=== PATIENT | female | born 1940 | race African-American/Black ===

== ENCOUNTER 2020-08-17 08:27 | Outpatient (CLI) | payer MEDICARE, SELFPAY ==
--- NOTE | 2020-08-17 11:30 | NEURO_ITS ---
Impression: # Complains of numbness of hands. # Bilateral Carpal Tunnel Syndrome. # Left ulnar neuropathy across the elbow. # Normal needle/EMG exam. # Clinical correlation recommended. Nerve Conduction Studies Anti Sensory Summary Table Stim Site NR Peak (ms) P-T Amp (?V) Site1 Site2 Delta-P (ms) Dist (cm) Tucker (m/s) Left Median Anti Sensory (2-3nd Digit) Wrist 4.9 19.9 Wrist 2-3nd Digit 4.9 14.0 29 Wrist 4.7 37.2 Wrist 2-3nd Digit 4.9 14.0 29 Right Median Anti Sensory (2-3nd Digit) Wrist 4.1 33.4 Wrist 2-3nd Digit 4.1 14.0 34 Wrist 4.0 54.8 Wrist 2-3nd Digit 4.1 14.0 34 Left Radial Anti Sensory (Base 1st Digit) Wrist 2.3 46.2 Wrist Base 1st Digit 2.3 0.0 Right Radial Anti Sensory (Base 1st Digit) Wrist 2.4 27.3 Wrist Base 1st Digit 2.4 0.0 Left Ulnar Anti Sensory (5th Digit) Wrist 2.8 45.9 Wrist 5th Digit 2.8 14.0 50 Right Ulnar Anti Sensory (5th Digit) Wrist 2.6 76.5 Wrist 5th Digit 2.6 14.0 54 Motor Summary Table Stim Site NR Onset (ms) O-P Amp (mV) Site1 Site2 Delta-0 (ms) Dist (cm) Tucker (m/s) Left Median Motor (Abd Poll Brev) Wrist 4.5 2.8 Elbow Wrist 4.8 28.0 58 Elbow 9.3 4.3 Right Median Motor (Abd Poll Brev) Wrist 4.5 3.7 Elbow Wrist 4.4 25.0 57 Elbow 8.9 2.4 Left Ulnar Motor (Abd Dig Minimi) Wrist 2.6 5.9 A Elbow Wrist 5.2 26.0 50 A Elbow 7.8 5.1 B Elbow Wrist 4.4 22.0 50 B Elbow 7.0 3.2 Right Ulnar Motor (Abd Dig Minimi) Wrist 3.0 4.8 A Elbow Wrist 4.5 26.0 58 A Elbow 7.5 3.5 F Wave Studies NR F-Lat (ms) L-R F-Lat (ms) Left Median (Mrkrs) (Abd Poll Brev) 28.01 0.18 Right Median (Mrkrs) (Abd Poll Brev) 27.84 0.18 Left Ulnar (Mrkrs) (Abd Dig Min) 25.83 0.68 Right Ulnar (Mrkrs) (Abd Dig Min) 26.50 0.68 EMG Side Muscle Nerve Root Ins Act Fibs Amp Dur Recrt Comment Right 1stDorInt Ulnar C8-T1 Nml Nml Nml Nml Nml Right Ext Indicis Radial (Post Int) C7-8 Nml Nml Nml Nml Nml Right Ext Digitorum Radial (Post Int) C7-8 Nml Nml Nml Nml Nml Right BrachioRad Radial C5-6 Nml Nml Nml Nml Nml Right PronatorTeres Median C6-7 Nml Nml Nml Nml Nml Right Abd Poll Brev Median C8-T1 Nml Nml Nml Nml Nml Left 1stDorInt Ulnar C8-T1 Nml Nml Nml Nml Nml Left Ext Indicis Radial (Post Int) C7-8 Nml Nml Nml Nml Nml Left Ext Digitorum Radial (Post Int) C7-8 Nml Nml Nml Nml Nml Left BrachioRad Radial C5-6 Nml Nml Nml Nml Nml Left PronatorTeres Median C6-7 Nml Nml Nml Nml Nml Left Abd Poll Brev Median C8-T1 Nml Nml Nml Nml Nml Right ABD Dig Min Ulnar C8-T1 Nml Nml Nml Nml Nml Left ABD Dig Min Ulnar C8-T1 Nml Nml Nml Nml Nml MTDD
== END 2020-08-17 08:28 | disposition home or self-care (01) ==
PROVIDERS: PCP Family Medicine; Visit Provider Family Medicine
DX: G56.03 Carpal tunnel syndrome, bilateral upper limbs (principal); R53.83 Other fatigue; R52 Pain, unspecified
CPT/HCPCS: 95886; 95911

== ENCOUNTER 2020-10-07 14:39 | Outpatient (CLI) | payer MEDICARE, SELFPAY ==
--- NOTE | 2020-10-07 14:41 | ECG_ITS ---
Measurements Intervals [place] Rate: 66 P: -28 MT: 163 QRS: -5 QRSD: 84 T: 13 QT: 389 QTc: 410 Interpretive Statements SINUS RHYTHM VOLTAGE CRITERIA FOR LVH BORDERLINE T WAVE ABNORMALITY- INFERIOR LEADS BASELINE ARTIFACT- I, II, III, AVR, AVL,A VF, V1-V6 BORDERLINE ECG Electronically Signed On 10-07-2020 16:45:02 BOOK EDITOR by Bg Real D.O.
[2020-10-07 15:16] LABS: Anion Gap 4 mmol/L (8-16); Blood Urea Nitrogen 28 mg/dL (7-17); Calcium 9.7 mg/dL (8.4-10.2); Carbon Dioxide 31 mmol/L (22-30); Chloride 104 mmol/L (98-107); Estimated Glomerular Filt Rate 48; Glucose 126 mg/dL (65-105); Potassium 4.6 mmol/L (3.4-5.0); Sodium 139 mmol/L (137-145)
== END 2020-10-07 14:40 | disposition home or self-care (01) ==
LOC: ANHSURGERY 14:40
PROVIDERS: Anesthesiology; Family Provider Family Medicine; PCP Family Medicine; Visit Provider Plastic Surgery
DX: E11.9 Type 2 diabetes mellitus without complications (principal); Z01.818 Encounter for other preprocedural examination
CPT/HCPCS: 36415; 80048; 93005

== ENCOUNTER 2020-10-10 00:21 | Outpatient (CLI) | payer MEDICARE, SELFPAY ==
[2020-10-10 17:34] LABS: SARS-CoV-2 RNA PCR Negative
== END 2020-10-10 00:22 | disposition home or self-care (01) ==
LOC: ANHCOVIDDT 00:21
PROVIDERS: Family Provider Family Medicine; PCP Family Medicine; Visit Provider Plastic Surgery
DX: Z01.812 Encounter for preprocedural laboratory examination (principal); Z20.822 Contact with and (suspected) exposure to COVID-19
CPT/HCPCS: C9803; U0003; U0005

== ENCOUNTER 2020-10-13 00:32 | Day surgery (SDC) | payer MEDICARE, SELFPAY ==
[2020-10-06 12:30] VITALS: BMI 31.1
[2020-10-13] VITALS (7 sets, daily range): BP systolic 128–146; BP diastolic 68–81; PULSE 61–86; RESP 10–20; TEMP 36.6; O2SAT 100
--- NOTE | 2020-10-13 07:08 | WPDHPUPDATE1 ---
History and Physical Update Update Date/Time: 10/13/20 07:08 History and Physical has been reviewed, including an updated exam of the patient. There are NO changes in the patient's condition. Risks, benefits, and alternatives have been discussed and questions answered. Patient agrees to proceed with procedure.
[2020-10-13] MEDS: LACTATED RINGERS 1,000 ML 30 ML IV CONT (10:25)
[2020-10-13 10:38] LABS: Glucose Point of Care 106 (65-105)
--- NOTE | 2020-10-13 10:56 | WPDANESEPPF ---
Anes - Initial Pre Proc Eval Procedure: Operation Date: 10/13/20 11:30 Proposed Procedures p Bilateral Open Carpal Tunnel Release - Vega Murphy MD Date/Time: 10/13/20 10:56 Surgeon: Vega Murphy MD Pre Op Diagnosis: bilat carpal tunnel syndrome Patient Data Age: 80 Gender: F Height: 4 ft 11 in Weight: 70 kg Allergies Allergy/AdvReac Type Severity Reaction Status Date / Time levofloxacin [From Levaquin] Allergy Severe Hives Verified 10/13/20 10:23 Home Medications Medication Instructions Recorded Confirmed Type ascorbate calcium (vitamin C) 1,000 mg PO DAILY 10/06/20 10/13/20 History aspirin [Aspirin Low Dose] 81 mg PO DAILY 10/06/20 10/13/20 History carvedilol 25 mg BID 10/06/20 10/13/20 History clopidogrel 75 mg DAILY 10/06/20 10/13/20 History geriatric multivitamin-min 1 tablet DAILY 10/06/20 10/13/20 History [One-A-Day 50 Plus] nitroglycerin 0.4 mg SUBLINGUAL Q5M PRN 10/06/20 10/06/20 History sitagliptin [Januvia] 100 mg DAILY 10/06/20 10/13/20 History spironolactone 12.5 mg DAILY 10/06/20 10/13/20 History Laboratory Tests 10/13/20 10:34 POC Capillary Glucose 106 mg/dl mg/dl (65-105) Patient hx anesthesia problems: none Family hx anesthesia problems: none PMFSH Past Medical History Medical History (Updated 10/13/20 @ 10:51 by Norbert Tavarez MD) CAD (coronary artery disease) CVA (cerebral vascular accident) Diabetes RADHA (obstructive sleep apnea) Family History Family History (Updated 11/24/18 @ 11:51 by DOCTOR UNKNOWN) Father Hypertension Family history of elevated blood lipids Mother Hypertension Family history of elevated blood lipids Social History Social History Smoking status: Never smoker Second hand tobacco smoke exposure: No Alcohol intake: never Substance use: never Substance use type: does not use Living arrangements: alone Spiritual care concerns: No Anes - Eval Final PreProcedure Day of Procedure 10/13/20 10:56 Patient weight: normal Heart: regular rate and rhythm Lungs: clear to auscultation Airway: Mallampati scale class II Neurological: alert and oriented Last oral intake: >/= 8 hours ASA classification: III Emergent: no Anesthetic plan: proceed Anesthesia type and monitoring: general GIVS and standard monitoring Informed Consent: The patient's anesthetic plan and its attendant risks and benefits were discussed with the patient/family/POA. Questions were solicited and answers provided to the satisfaction of the patient/family/POA.
[2020-10-13] MEDS: BACITRACIN OINTMENT 15 GM TUBE 1 APPLIC TOPICAL (13:28)
[2020-10-13] MEDS: LIDO 1%/EPINEPHRINE 1:100,000 50 ML VIAL INFILTRATE (13:28)
--- NOTE | 2020-10-13 13:33 | SUR.OPER ---
Ebl=5ml
[2020-10-13 13:47] LABS: Glucose Point of Care 96 (65-105)
--- NOTE | 2020-10-13 13:47 | PM.PROC ---
Procedure Note - Detailed Date of procedure: 10/13/20 Pre-op diagnosis: bilat carpal tunnel syndrome Post-op diagnosis: same Procedure performed: B OCTR Anesthesia: MAC Surgeon: Vega Murphy MD Estimated blood loss (mL): 3 Tourniquet time (min): 6 Drains: No Packing: No Pathology: none sent Complications: No immediate complications Condition: stable Disposition: same day
--- NOTE | 2020-10-13 14:02 | PM.PROC ---
Procedure Note - Detailed Date of procedure: 10/13/20 Pre-op diagnosis: bilat carpal tunnel syndrome Post-op diagnosis: same Procedure performed: Bilateral open carpal tunnel release Description of procedure: The patient who has consented for bilateral carpal tunnel release was not marked in preop she was met in the operating room. She was still awake. The time-out was held and confirmed. She was given IV sedation and both hands were prepped and draped in usual fashion. The 2 wrists were infiltrated with 1% lidocaine with epinephrine. Surgery was begun on the left side with the tourniquet was elevated to 250 mmHg. The incision was made in the palm as marked dissection was carried bluntly through the subcutaneous tissue to palmar fascia. This and the carpal ligament were incised with a 15. Blade. Under 3 point retraction the ligament was divided distally and proximally for complete release. No unusual anatomy was noted the skin was closed with interrupted 5 0 nylon suture. The usual bandage was applied the tourniquet was released. The right side was done next with no inflation of the tourniquet. This was due to the proximity of the IV.The site had been marked and previously infiltrated with 1% lidocaine with epinephrine. The incision was made in the palm. Dissection was carried bluntly through the subcutaneous tissue to the palmar fascia. This and the carpal ligament were incised with a 15. Blade opening the canal. Under 3 point retraction the ligament was divided distally and proximally to completely release it. No unusual anatomy was noted. The wound was closed with interrupted 5 0 nylon sutures. The usual bandage was applied. Anesthesia: MAC Surgeon: Vega Murphy MD Estimated blood loss (mL): 2 Tourniquet time (min): 8 Drains: No Packing: No Pathology: none sent Complications: No immediate complications Condition: stable Disposition: same day
== END 2020-10-13 15:20 | disposition home or self-care (01) ==
PROVIDERS: Family Provider Family Medicine; PCP Family Medicine; Visit Provider Plastic Surgery
PROC: (CPT 64721; principal; 2020-10-13 11:30)
DX: G56.03 Carpal tunnel syndrome, bilateral upper limbs (principal); E11.9 Type 2 diabetes mellitus without complications; I25.10 Atherosclerotic heart disease of native coronary artery without angina pectoris; G47.33 Obstructive sleep apnea (adult) (pediatric); Z86.73 Personal history of transient ischemic attack (TIA), and cerebral infarction without residual deficits; Z79.02 Long term (current) use of antithrombotics/antiplatelets; Z79.82 Long term (current) use of aspirin; Z79.84 Long term (current) use of oral hypoglycemic drugs
CPT/HCPCS: 64721; 36415; 80048; 82948; 93005; A9270; C9803; J2405; J2704; J7120; U0003; U0005

== ENCOUNTER 2020-12-15 10:43 | Outpatient (CLI) | payer MEDICARE, SELFPAY ==
--- NOTE | ~2020-12-15 | CT_ITS ---
EXAMINATION: CT cervical spine wo con EXAM DATE: 12/15/2020 11:16 INDICATION: Cervicalgia. TECHNIQUE: Spiral CT of the cervical spine was performed without contrast. Axial images were reviewe d. Coronal and sagittal reformatted images were also reviewed. The dose-length product (DLP) for thi s examination was 357.89 mGy-cm. The exposure was tailored according to patient size (auto mA exposu re control), and iterative reconstruction (ASIR) was used as additional dose reduction technique. Cor relation is made to neck CT 04/08/2005. FINDINGS: There is fused C5-6 disc space, less trabeculation and ossification than the vertebral bod ies, probably still developing osseous fusion. No cortical destruction or fluid density to suggest di scitis. Moderate to severe disc disease at the C6-7 level, mild to moderate at the other cervical lev els. The vertebral bodies are aligned in the AP dimension. The odontoid process is intact. The later al masses of C1 line up with C2. There are no acute fractures identified. Patient has had interval right-sided thyroidectomy, with the right vocal cord midline which could ind icate paralysis. Additionally, prominent ascending aorta on the emergency room clerk image, possible aneurysm. Level by level evaluation: C2-C3: Disc does not extend beyond the endplate margin. Uncovertebral joint arthropathy: None. Facet joint arthropathy: Moderate left, mild right. Neural foraminal stenosis: Mild left. Central canal stenosis: No stenosis. C3-C4: There is a mild diffuse disc bulge. Uncovertebral joint arthropathy: Mild to moderate right. Facet joint arthropathy: Moderate right, mild to moderate left. Neural foraminal stenosis: Mild to moderate right. Central canal stenosis: No stenosis. C4-C5: There is a mild diffuse disc bulge. Uncovertebral joint arthropathy: Mild bilateral. Facet joint arthropathy: Moderate to severe right, moderate left. Neural foraminal stenosis: Moderate right, mild left. Central canal stenosis: Mild. C5-C6: This level is fused. Uncovertebral joint arthropathy: Fused, but bulky left. Facet joint arthropathy: Fused, mild right. Neural foraminal stenosis: Mild left. Central canal stenosis: Mild. C6-C7: There is a mild diffuse disc bulge. Uncovertebral joint arthropathy: Moderate bilateral. Facet joint arthropathy: Mild bilateral. Neural foraminal stenosis: Mild right. Central canal stenosis: Mild. C7-T1: Disc does not extend beyond the endplate margin. Uncovertebral joint arthropathy: None. Facet joint arthropathy: Moderate bilateral. Neural foraminal stenosis: Mild to moderate left. Central canal stenosis: No stenosis. IMPRESSION: 1. Possible ascending aortic aneurysm; consider chest CT, without contrast would be adequate for anna luating caliber of aorta. 2. Spondylosis as detailed above, right C4-5 neural foramina most narrowed. Reviewed, dictated and finalized at location A. IMPRESSION: 1. Possible ascending aortic aneurysm; consider chest CT, without contrast wou ld be adequate for evaluating caliber of aorta. 2. Spondylosis as detailed above, right C4-5 neural foramina most narrowed.
== END 2020-12-15 10:44 | disposition home or self-care (01) ==
PROVIDERS: PCP Family Medicine
DX: M54.2 Cervicalgia (principal)
CPT/HCPCS: 72125

== ENCOUNTER 2020-12-19 10:35 | Outpatient (CLI) | payer MEDICARE, SELFPAY ==
--- NOTE | ~2020-12-19 | CT_ITS ---
EXAMINATION: CT diagnostic chest wo con EXAM DATE: 12/19/2020 10:54 INDICATION: Aneurysmal neck CT. Ascending aortic aneurysm. TECHNIQUE: Spiral CT of the chest without contrast. Axial, coronal and sagittal images were reviewe d. Coronal maximum intensity pixel images of chest reviewed. The dose-length product (DLP) for this examination was 170.81 mGy-cm. The exposure was tailored according to patient size (auto mA exposur e control), and iterative reconstruction (ASIR) was used as additional dose reduction technique. The re is no prior study for comparison. FINDINGS: The ascending aorta measures 5 cm, moderately dilated. There are no pleural or pericardia l effusions. Tracheobronchial tree is patent. There is no mediastinal, hilar or axillary lymphade nopathy. There is no pneumothorax. Heart normal in size. Dense left anterior descending coronar y artery, could be severe coronary arterial sclerosis and/or coronary artery stent(s), which are diff icult to distinguish due to cardiac motion on this non-gated exam. Upper abdomen is unremarkable. There is moderate thoracic spondylosis without osteoblastic or osteolytic lesions identified. IMPRESSION: 1. Ascending aortic 5 cm aneurysm. 2. Dense left anterior descending coronary artery, stent versus arterial sclerosis. Reviewed, dictated and finalized at location A. IMPRESSION: 1. Ascending aortic 5 cm aneurysm. 2. Dense left anterior descending coronary artery, stent versus arterial scler osis.
== END 2020-12-19 10:36 | disposition home or self-care (01) ==
PROVIDERS: PCP Family Medicine; Visit Provider Family Medicine
DX: I71.2 Thoracic aortic aneurysm, without rupture (principal); M47.814 Spondylosis without myelopathy or radiculopathy, thoracic region
CPT/HCPCS: 71250

== ENCOUNTER → 2021-03-03 06:38 | Outpatient (CLI) | payer MEDICARE, SELFPAY ==
[2021-03-04 16:57] LABS: SARS-CoV-2 RNA PCR Negative
== END ==
PROVIDERS: PCP Family Medicine; Visit Provider Family Medicine
DX: Z01.812 Encounter for preprocedural laboratory examination (principal); Z20.822 Contact with and (suspected) exposure to COVID-19
CPT/HCPCS: C9803; U0003; U0005

== ENCOUNTER 2021-06-16 09:04 | Outpatient (CLI) | payer MEDICARE, SELFPAY ==
--- NOTE | ~2021-06-16 | XR_ITS ---
XR chest 1V DATE: 06/16/2021 09:36 INDICATION: Ascending aortic aneurysm TECHNIQUE: PA view COMPARISON: CT chest 06/01/2007 portable AP chest 08/13/2006 AP and lateral chest FINDINGS: Heart size is within upper normal range. There is aortic calcification, ectasia and unfoldi ng. No hilar or mediastinal enlargement. No pulmonary infiltrate or consolidation, pleural effusion or pulmonary vascular congestion or pneumo thorax. Status post cervical spine surgical fusion. Diffuse osteopenia. There is mild dextroscoliosis and prominent degenerative spurring of the thoracic spine. Osteophytic changes are noted at the glenohumeral joints, especially on the left. IMPRESSION: No active pulmonary disease Reviewed, dictated and finalized at location A. IMPRESSION: No active pulmonary disease
== END 2021-06-16 09:05 ==
PROVIDERS: PCP Family Medicine; Visit Provider Family Medicine
DX: I71.9 Aortic aneurysm of unspecified site, without rupture (principal)
CPT/HCPCS: 71045; 71046

== ENCOUNTER 2022-07-23 10:20 | Outpatient (CLI) | payer MEDICARE, SELFPAY ==
[2022-07-23 11:14] LABS: Hematocrit 34.4 % (37.0-47.0); Hemoglobin 11.4 g/dL (12.0-15.0); Mean Corpuscular HGB Conc 33.1 g/dl (32-36); Mean Corpuscular Hemoglobin 29.2 pg (26-34); Mean Corpuscular Volume 88.2 fl (80-100); Platelet Count Result 189 k/mm3 (150-375); White Blood Count 4.9 K/mm3 (4.5-10.0)
[2022-07-23 11:17] LABS: Creatinine Urine 84.7 mg/dL; Total Protein Urine Random 6 mg/dL; Ur Ttl Prot Creatinine Ratio 0.07 mg/mg (0-0.20)
[2022-07-23 11:25] LABS: Albumin Level 4.2 g/dL (3.5-5.1); Anion Gap 7 mmol/L (8-16); Blood Urea Nitrogen 33 mg/dL (7-17); Calcium 8.8 mg/dL (8.4-10.2); Carbon Dioxide 28 mmol/L (22-30); Chloride 108 mmol/L (98-107); Estimated Glomerular Filt Rate 31; Glucose 94 mg/dL (65-110); Phosphorus 3.8 mg/dL (2.5-4.5); Potassium 4.5 mmol/L (3.4-5.0); Sodium 143 mmol/L (137-145)
== END 2022-07-23 10:21 | disposition home or self-care (01) ==
PROVIDERS: PCP Family Medicine
DX: E11.9 Type 2 diabetes mellitus without complications (principal); I12.9 Hypertensive chronic kidney disease with stage 1 through stage 4 chronic kidney disease, or unspecified chronic kidney disease; N18.2 Chronic kidney disease, stage 2 (mild)
CPT/HCPCS: 36415; 80069; 82570; 84156; 85027

== ENCOUNTER 2023-01-22 11:24 | Outpatient (CLI) | payer MEDICARE, SELFPAY ==
[2023-01-22 12:01] LABS: Hematocrit 34.8 % (37.0-47.0); Hemoglobin 11.3 g/dL (12.0-15.0); Mean Corpuscular HGB Conc 32.5 g/dl (32-36); Mean Corpuscular Hemoglobin 28.9 pg (26-34); Mean Platelet Volume 9.7 fl (7.4-10.4); Platelet Count Result 180 k/mm3 (150-375); Red Blood Count 3.91 M/mm3 (4.2-5.4); Red Cell Distribution Width 13.9 % (11.5-14.5); White Blood Count 4.5 K/mm3 (4.5-10.0)
[2023-01-22 12:08] LABS: Creatinine Urine 92.6 mg/dL
[2023-01-22 12:21] LABS: Anion Gap 6 mmol/L (8-16); Blood Urea Nitrogen 43 mg/dL (7-17); Calcium 9.1 mg/dL (8.4-10.2); Carbon Dioxide 29 mmol/L (22-30); Chloride 105 mmol/L (98-107); Estimated Glomerular Filt Rate 31; Glucose 104 mg/dL (65-110); Phosphorus 4.6 mg/dL (2.5-4.5); Potassium 4.8 mmol/L (3.4-5.0); Sodium 140 mmol/L (137-145)
[2023-01-22 12:23] LABS: Total Protein Urine Random < 5 mg/dL; Ur Ttl Prot Creatinine Ratio < 0.05 mg/mg (0-0.20)
== END 2023-01-22 11:25 | disposition home or self-care (01) ==
PROVIDERS: PCP Family Medicine
DX: I12.9 Hypertensive chronic kidney disease with stage 1 through stage 4 chronic kidney disease, or unspecified chronic kidney disease (principal); N18.32 Chronic kidney disease, stage 3b; E11.9 Type 2 diabetes mellitus without complications
CPT/HCPCS: 36415; 80069; 82570; 84156; 85027

== ENCOUNTER 2023-11-05 13:21 | Outpatient (CLI) | payer MEDICARE, SELFPAY ==
[2023-11-05 14:07] LABS: Albumin Level 3.9 g/dL (3.5-5.1); Anion Gap 5 mmol/L (8-16); Blood Urea Nitrogen 23 mg/dL (7-17); Calcium 8.9 mg/dL (8.4-10.2); Carbon Dioxide 26 mmol/L (22-30); Chloride 108 mmol/L (98-107); Estimated Glomerular Filt Rate 37; Glucose 112 mg/dL (65-110); Phosphorus 3.7 mg/dL (2.5-4.5); Sodium 139 mmol/L (137-145)
== END 2023-11-05 13:22 | disposition home or self-care (01) ==
PROVIDERS: PCP Family Medicine
DX: N18.32 Chronic kidney disease, stage 3b (principal)
CPT/HCPCS: 36415; 80069

== ENCOUNTER 2024-01-24 12:55 | Outpatient (CLI) | payer MEDICARE, SELFPAY ==
--- NOTE | ~2024-01-24 | US_ITS ---
EXAMINATION: US venous doppler LE RT DATE: 01/24/2024 14:24 INDICATION: Right lower limb edema. TECHNIQUE: Grayscale ultrasound images without and with compression and Doppler ultrasound images of the right lower extremity veins were obtained. COMPARISON: None. FINDINGS: The visualized portions of right common femoral vein, profunda (deep) femoral vein, femoral vein, pop liteal vein, peroneal veins, posterior tibial veins, and greater saphenous vein outflow are patent. IMPRESSION: 1. No deep venous thrombosis. Reviewed, dictated and finalized at location E.
== END 2024-01-24 12:56 | disposition home or self-care (01) ==
DX: R60.0 Localized edema (principal)
CPT/HCPCS: 93971

== ENCOUNTER 2024-03-24 02:10 | Day surgery (SDC) | payer MEDICARE, SELFPAY ==
--- NOTE | 2024-03-13 10:11 | SUR.PREOP ---
Patient called to reschedule his procedure since Dr. Martins will be unavailable on Apr 13. Was unable to reach patient since her voicemail is not set up. Message left on pt's daughter's voicemail.
[2024-03-20 12:15] VITALS: BMI 31.3
[2024-03-24 13:03] VITALS: BP 122/83; PULSE 70; RESP 18; TEMP 36.4; O2SAT 96; BMI 30.7
[2024-03-24 13:19] LABS: Glucose Point of Care 78 mg/dl (65-105)
[2024-03-24] MEDS: LACTATED RINGERS 1,000 ML 150 ML IV CONT (13:54)
--- NOTE | 2024-03-24 14:00 | WPDANESEPPF ---
Anes - Initial Pre Proc Eval Procedure: Operation Date: 03/24/24 14:30 Proposed Procedures p Esophagogastroduodenoscopy & Colonoscopy - Maynor Contreras MD Date/Time: 03/24/24 14:00 Surgeon: Maynor Contreras MD Pre Op Diagnosis: N&V, Epigastric pain, Constipation, CIBH Patient Data Age: 83 Gender: F Height: 1.5 m Weight: 69.1 kg Last Vital Signs Temp 97.5 F L 03/24/24 13:03 Pulse 70 03/24/24 13:03 Resp 18 03/24/24 13:03 BP 122/83 03/24/24 13:03 Pulse Ox 96 03/24/24 13:03 O2 Del Method Room Air 03/24/24 13:03 Allergies Allergy/AdvReac Type Severity Reaction Status Date / Time levofloxacin [From Levaquin] Allergy Severe Hives Verified 03/24/24 12:58 Home Medications Medication Instructions Recorded Confirmed Type aspirin 81 mg tablet,delayed 81 mg PO DAILY 10/06/20 03/24/24 History release (Yasmine Low Dose Aspirin) carvedilol 25 mg tablet 25 mg BID 10/06/20 03/24/24 History nitroglycerin 0.4 mg sublingual 0.4 mg sublingual Q5M PRN Chest 10/06/20 03/24/24 History tablet Pain sitagliptin phosphate 100 mg 100 mg PO DAILY 10/06/20 03/24/24 History tablet (Januvia) spironolactone 25 mg tablet 12.5 mg DAILY 10/06/20 03/24/24 History amlodipine 5 mg tablet 5 mg PO DAILY 02/18/24 03/24/24 History atorvastatin 20 mg tablet 20 mg PO DAILY 02/18/24 03/24/24 History tramadol 25 mg tablet 25 mg PO Q6H PRN Pain 02/18/24 03/24/24 History olmesartan 40 1 tablet PO DAILY 03/20/24 03/24/24 History mg-hydrochlorothiazide 25 mg tablet Laboratory Tests 03/24/24 13:08 POC Capillary Glucose 78 mg/dl (65-105) Patient hx anesthesia problems: none Family hx anesthesia problems: none Results Review: All pre-operative results and documents have been reviewed as part of the pre-operative evaluation. [facility] Past Medical History Medical History CAD (coronary artery disease) CVA (cerebral vascular accident) Diabetes RADHA (obstructive sleep apnea) Family History Family History Father Hypertension Family history of elevated blood lipids Mother Hypertension Family history of elevated blood lipids Social History Social History Smoking status: Never smoker Second hand tobacco smoke exposure: No Alcohol intake: never Substance use: never Substance use type: does not use Living arrangements: with family Spiritual care concerns: No Anes - Eval Final PreProcedure Day of Procedure 03/24/24 14:00 Patient weight: obese Heart: regular rate and rhythm Lungs: clear to auscultation Airway: Mallampati scale and special considerations (Missing many upper and lower teeth. ) Neurological: alert and oriented Last oral intake: >/= 8 hours ASA classification: III Emergent: no Anesthetic plan: proceed Anesthesia type and monitoring: general GIVS and standard monitoring Results Review: All pre-operative results and documents have been reviewed as part of the pre-operative evaluation. CAD, s/p PTCA without cp or sob. RADHA, DMf fsbs 78. Informed Consent: The patient's anesthetic plan and its attendant risks and benefits were discussed with the patient/family/POA. Questions were solicited and answers provided to the satisfaction of the patient/family/POA.
--- NOTE | 2024-03-24 14:05 | PM.HPGS ---
History of Present Illness History of Present Illness Consent: Risks, benefits, and alternatives have been discussed and questions answered. Patient agrees to proceed with procedure. Chief complaint: N&V, Epigastric pain, Constipation, CIBH Narrative: Saloni Mccallum is a 83 year old female with intermittent nausea and abdominal pain, also recently more constipation, last time had scopes in 2009 with diverticulosis and gastritis. Review of Systems Review of Systems: All systems reviewed & are unremarkable except as noted in HPI and below PMFSH Past Medical History Medical History CAD (coronary artery disease) CVA (cerebral vascular accident) Diabetes RADHA (obstructive sleep apnea) Family History Family History Father Hypertension Family history of elevated blood lipids Mother Hypertension Family history of elevated blood lipids Social History Social History Smoking status: Never smoker Second hand tobacco smoke exposure: No Alcohol intake: never Substance use: never Substance use type: does not use Living arrangements: with family Spiritual care concerns: No Meds Home Medications and Allergies Home Medications Medication Instructions Recorded Confirmed Type aspirin 81 mg tablet,delayed 81 mg PO DAILY 10/06/20 03/24/24 History release (Yasmine Low Dose Aspirin) carvedilol 25 mg tablet 25 mg BID 10/06/20 03/24/24 History nitroglycerin 0.4 mg sublingual 0.4 mg sublingual Q5M PRN Chest 10/06/20 03/24/24 History tablet Pain sitagliptin phosphate 100 mg 100 mg PO DAILY 10/06/20 03/24/24 History tablet (Januvia) spironolactone 25 mg tablet 12.5 mg DAILY 10/06/20 03/24/24 History amlodipine 5 mg tablet 5 mg PO DAILY 02/18/24 03/24/24 History atorvastatin 20 mg tablet 20 mg PO DAILY 02/18/24 03/24/24 History tramadol 25 mg tablet 25 mg PO Q6H PRN Pain 02/18/24 03/24/24 History olmesartan 40 1 tablet PO DAILY 03/20/24 03/24/24 History mg-hydrochlorothiazide 25 mg tablet Allergies Allergy/AdvReac Type Severity Reaction Status Date / Time levofloxacin [From Levaquin] Allergy Severe Hives Verified 03/24/24 12:58 Vital Signs Vital Signs - 24 hr 03/24/24 13:03 Temperature 97.5 F L Pulse Rate 70 Respiratory Rate 18 Blood Pressure 122/83 Pulse Oximetry 96 Oxygen Delivery Room Air Exam Const: General: comfortable and no acute distress HENMT: Face/Nose/Sinus: Normal nares present Eyes: General: appearance normal, both eyes and all related structures Neck: Neck: no JVD Resp: Auscultation: clear to auscultation bilaterally Cardio: Rate: regular rate Rhythm: regular rhythm GI: Inspection: non-distended GI Palp: Yes Soft to palpation Skin: General skin exam: normal color Neuro: General: gait normal Speech: normal speech Extrem: General: normal to inspection Psych: Mental Status: mental status grossly normal Assessment and Plan Assessment and plan (1) Epigastric pain: Code(s): R10.13 - Epigastric pain Status: Acute Assessment and Plan: egd to assess (2) Constipation: Code(s): K59.00 - Constipation, unspecified Status: Acute Assessment and Plan: colonoscopy
--- NOTE | 2024-03-24 14:25 | SUR.OPER ---
EGD end 1419 COLONOSCOPY START 1421
[2024-03-24 14:41] VITALS: BP 119/67; PULSE 62; RESP 20; O2SAT 100
[2024-03-24 14:51] VITALS: BP 115/70; PULSE 64; RESP 20; O2SAT 100
[2024-03-24 15:01] VITALS: BP 128/74; PULSE 64; RESP 20; O2SAT 99
[2024-03-24 15:20] LABS: HPYLORIRESULT Negative
== END 2024-03-24 15:13 | disposition home or self-care (01) ==
PROVIDERS: Visit Provider Internal Medicine Gastroenterology
PROC: 0DJ08ZZ Inspection of Upper Intestinal Tract, Via Natural or Artificial Opening Endoscopic (ICD-10-PCS; CPT 43235; principal; 2024-03-24 14:30)
DX: D12.2 Benign neoplasm of ascending colon (principal); K57.30 Diverticulosis of large intestine without perforation or abscess without bleeding; K64.8 Other hemorrhoids; K21.00 Gastro-esophageal reflux disease with esophagitis, without bleeding; K29.50 Unspecified chronic gastritis without bleeding; I25.10 Atherosclerotic heart disease of native coronary artery without angina pectoris; E11.9 Type 2 diabetes mellitus without complications; G47.33 Obstructive sleep apnea (adult) (pediatric); Z86.73 Personal history of transient ischemic attack (TIA), and cerebral infarction without residual deficits; Z79.82 Long term (current) use of aspirin; Z79.84 Long term (current) use of oral hypoglycemic drugs; E66.9 Obesity, unspecified; Z68.30 Body mass index [BMI] 30.0-30.9, adult
CPT/HCPCS: 45380; 43239; 82948; 87081; 88305; J2704; J7120

== ENCOUNTER 2024-07-03 09:26 | Outpatient (CLI) | payer MEDICARE, SELFPAY ==
[2024-07-03 10:15] LABS: Hematocrit 35.5 % (37.0-47.0); Hemoglobin 11.6 g/dL (12.0-15.0); Immature Granulocyte Absolute 0.02 K/mm3 (0.00-0.031); Immature Granulocyte Percent A 0.5 % (0-0.5); Lymphocytes Absolute Auto 1.19 K/mm3 (0.9-3.2); Lymphocytes Percent Auto 29.6 % (18.3-44.2); Mean Corpuscular HGB Conc 32.7 g/dl (32-36); Mean Corpuscular Hemoglobin 29.4 pg (26-34); Mean Corpuscular Volume 90.1 fl (80-100); Mean Platelet Volume 10.3 fl (7.4-10.4); Monocytes Absolute Auto 0.5 K/mm3 (0.1-0.6); Monocytes Percent Auto 13.2 % (2.6-8.5); Neutrophils Absolute Auto 2.3 K/mm3 (1.3-6.7); Neutrophils Percent Auto 56.7 % (45.5-73.1); Platelet Count Result 173 k/mm3 (150-375); Red Blood Count 3.94 M/mm3 (4.2-5.4); Red Cell Distribution Width 13.4 % (11.5-14.5)
[2024-07-03 10:23] LABS: Hemoglobin A1C 6.3 % (<5.7)
[2024-07-03 10:32] LABS: Alanine Aminotransferase 40 U/L (6-35); Albumin Level 4.2 g/dL (3.5-5.1); Alkaline Phosphatase 60 U/L (38-126); Anion Gap 10 mmol/L (4-12); Aspartate Amino Transferase 36 U/L (14-36); Bilirubin,Total 0.5 mg/dL (0.2-1.3); Blood Urea Nitrogen 44 mg/dL (7-17); Calcium 8.9 mg/dL (8.4-10.2); Carbon Dioxide 25 mmol/L (22-30); Chloride 106 mmol/L (98-107); Cholesterol 158 mg/dL (0-200); Estimated Glomerular Filt Rate 26; Glucose 103 mg/dL (65-110); HDL Direct 34 mg/dL; Potassium 4.7 mmol/L (3.4-5.0); Sodium 141 mmol/L (137-145); Triglycerides 124 mg/dL (<150)
[2024-07-03 10:46] LABS: LDL Cholesterol Direct 81 mg/dL
== END 2024-07-03 09:27 | disposition home or self-care (01) ==
DX: I10 Essential (primary) hypertension (principal); E78.5 Hyperlipidemia, unspecified; E11.9 Type 2 diabetes mellitus without complications
CPT/HCPCS: 36415; 80053; 80061; 83036; 85025

== ENCOUNTER 2024-11-13 12:30 | Outpatient (RCR) | payer MEDICARE, SELFPAY ==
--- NOTE | 2024-10-09 14:25 | OTOPEVAL1 ---
Assessment and note entered by Bart Frost, JASWANT/Derrick, DAISHAT OT Evaluation Information 10/09/24 Assessment Status Evaluation Diagnosis Trigger finger Subjective Information Patient presents with symptoms of a trigger finger in her right middle finger. She is right handed. She reports being very restricted with right hand use. 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 She is unable to open a jar or do any household cleaning tasks. She reports it began about 6 months ago and progressively has gotten worse. Reported Pain Level Pain Score 8: Self Report Additional Pain Score Comments Patient reports 8/10 pain at rest. She states if she tries to open a jar and it hits her palm her pain gets up to 10/10. Assessment OT Clinical Summary Patient referred to OT with dx of trigger finger. She presents with very limited dominant hand use due to soft tissue restriction, pain, and weakness . Patient responded well to use of paraffin, soft tissue mobilization, and gentle ROM. Continued skilled OT indicated for continued use of modalities, therapeutic exercise, and HEP progression to facilitate improved ROM, strength, and use of her dominant hand. Plan of Care Interventions Therapeutic Exercise,Manual Therapy,Therapeutic Activities,Check Out for Orthotic/Prosthetic, Ultrasound,Paraffin OT Services Indicated Yes Treatment Frequency and 2x/week for 8 visits Duration These treatments will address the objective and functional deficits as defined above. The patient will be advanced safely and appropriately in order for the patient to progress towards his/her prior level of function. Additional exercises will be introduced and as well as a comprehensive home exercise program upon discharge, if needed, ?to ensure carryover of functional gains achieved in the clinic. This treatment plan has been reviewed and agreement upon by the patient.
--- NOTE | 2024-10-09 14:26 | OPREHPOC ---
Outpatient Therapy Plan of Care This is a Multidisciplinary Plan of Care that may contain components documented by all disciplines (PT, OT, and ST.) OT Problem 1 OT Problem #1 Knowledge Deficit OT Goal 1 Goal / Goal Update Patient to be independent with instructed materials. Target Visit 8 OT Problem 2 OT Problem #2 Pain OT Goal 1 Goal / Goal Update Patient to report reduced pain in the right hand, reporting 0/10 at rest. Target Visit 8 OT Goal 2 Goal / Goal Update Patient to report reduced pain in the right hand reporting 5/10 at worst . 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 Target Visit 8 OT Problem 4 OT Problem #4 Impaired Strength OT Goal 1 Goal / Goal Update Patient to improve functional grocery worker strength for ADLs as measured by being able to tolerate grocery worker strengthening with at least murillo putty x5 minutes. Target Visit 8
--- NOTE | 2024-10-12 11:32 | PCOTNOTE ---
Patient called & cancelled scheduled appointment this date due to illness.
--- NOTE | 2024-10-20 10:53 | PCOTNOTE ---
Addendum entered by Bart Frost, JASWANT/Derrick, CHT 10/20/24 11:06: Patient called back to report she thought her appointment was at 12:30. Confirmed time for Saturday's appointment. Original Note: Patient did not show up for scheduled appointment this date. Called patient and she did not answer. Unable to leave a voicemail.
--- NOTE | 2024-11-06 11:50 | PCOTNOTE ---
Patient called & cancelled scheduled appointment this date due to illness.
--- NOTE | 2024-11-13 13:09 | OTOPDC ---
Assessment and note entered by Bart Frost, OTR/Derrick, HUI OT D/C 11/13/24 Assessment Status Discharge Diagnosis Trigger finger Subjective Information Patient reports excellent progress in the right hand. She states she is no longer having any pain and is able to tolerate pressure into the palm without pain. She is now able to double end trimmer objects without difficulty. She is back to being able to open jars and various lids. She reports she is back to functioning normal . She reports the finger no longer catches with ROM. She reports feeling weak in her double end trimmer. Since start of care: - right hand is now able to make a fist, this improved from 4 cm gap - right hand progressed to tolerating double end trimmer strengthening with putty without pain or triggering - right double end trimmer strength 45 lbs (norm 48 lbs) Reported Pain Level Pain Score 0: Self Report Assessment OT Clinical Summary Patient referred to OT with dx of trigger finger. At the start of care she had very limited use of her right hand due to pain. She has progressed to no pain and has returned to unrestricted use. She is tolerating double end trimmer/pinch strengthening very well. Reviewed HEP today and she is independent with all materials. Plan of Care OT Services Indicated No
== END 2024-11-13 15:47 | disposition home or self-care (01) ==
LOC: ANHOT 12:30
PROVIDERS: Visit Provider Plastic Surgery
DX: M65.331 Trigger finger, right middle finger (principal)
CPT/HCPCS: 97018; 97110; 97140; 97165

== ENCOUNTER 2025-01-12 08:58 | Outpatient (CLI) | payer MEDICARE, SELFPAY ==
--- OUTSIDE RECORDS SUMMARY | 2025-01-12 09:32 | XMS_ITS | Clinical Summary ---
Author Organization [facility] Address [address] [place] [address] Phone Care Team Providers Care Tobacco Classer Name Role Phone Oscar Garrett MD Primary Care Provider [phone] Allergies Active Allergy Reactions Criticality Noted Date Comments Isosorbide Mononitrate Headache Low 03/03/2021 Latex 05/03/2021 Added based on information entered during log entry, please review and add reactions, type, and severity as needed Levofloxacin Anaphylaxis High 03/03/2021 Tongue swelling & hives Medications metoprolol tartrate (LOPRESSOR) 50 mg Oral tabletIndicatio ns:Breast mass Take 50 mg by mouth 2 times daily. Active esomeprazole (NEXIUM) 40 mg Oral CpDRIndications :Breast mass Take 40 mg by mouth daily before breakfast. Active valsartan-Etna chlorothiazide (DIOVAN HCT) 320-25 mg Oral tabletIndicatio ns:Breast mass Take 1 Tab by mouth daily. Active aspirin (SHAAN) 81 mg Oral TabIndications: Breast mass Take 81 mg by mouth daily. Active atorvastatin (LIPITOR) 40 mg Oral tabletIndicatio ns:Breast mass Take 20 mg by mouth late in the day. Active carvediloL (COREG) 25 mg tablet Take 25 mg by mouth 2 times daily with meals. Active clopidogreL (PLAVIX) 75 mg Tablet Take 75 mg by mouth daily. Active SITagliptin (JANUVIA) 100 mg Tablet Take 100 mg by mouth daily with breakfast. Active amLODIPine (NORVASC) 5 mg tablet Take 5 mg by mouth daily. Active olmesartan-hydr oCHLOROthiazide (BENICAR-HCT) 40-25 mg tablet Take 1 Tablet by mouth daily in the morning. Active spironolactone (ALDACTONE) 25 mg tablet Take 12.5 mg by mouth daily. Active ascorbic acid, vitamin C, (VITAMIN C) 250 mg tablet Take 250 mg by mouth daily. Active Cholecalciferol , Vitamin D3, 75 mcg (3,000 unit) Tablet Take 1 Capsule by mouth daily. Active cyclobenzaprine (FLEXERIL) 10 mg tablet Take 1 Tablet (10 mg) by mouth every 8 hours as needed for Spasm. 42 Tablet 1 05/05/2021 3:57 PM CDT 05/04/2021 Active oxyCODONE-aceta minophen (Percocet) 5-325 mg tabletIndicatio ns:Cervical myelopathy (CMS/HCC) Take 1 Tablet by mouth every 4 hours as needed for Pain. Max Daily Amount: 6 Tablets 42 Tablet 05/05/2021 3:57 PM CDT 05/04/2021 Active Active Problems Patient Care Coordination No te Formatting of this note migh t be different from the original. Primary Care: Oscar Garrett MD Referring Provider: No referring provider defined for this encounter. Other: Problem Noted Date Diagnosed Date Dysphagia 05/11/2021 H/O cervical spine surgery 05/11/2021 Breast mass 11/06/2011 HTN (hypertension) Diabetes mellitus Family History Medical History Relation Name Comments Heart Disease Father Heart Disease Mother Relation Name Status Comments Father Mother Social History Tobacco Use Types Packs/Day Years Used Date Smoking Tobacco: Never Smokeless Tobacco: Never Alcohol Use Standard Drinks/Week Comments Not Currently 0 (1 standard drink = 0.6 oz pur e alcohol) rare Comments No Sex and Gender Information Value Date Recorded Sex Assigned at Not on file 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 Gender Identity Not on file Sexual Orientation Not on file Occupation Industry Job Start Date Job End Date Not on file Not on file Not on file Not on file Last Filed Vital Signs Vital Sign Reading Time Taken Comments Blood Pressure 153/76 05/14/2021 6:00 AM CDT Pulse 58 05/14/2021 6:00 AM CDT Temperature 36.6 C (97.9 F) 05/14/2021 8:00 AM CDT Respiratory Rate 16 05/14/2021 6:00 AM CDT Oxygen Saturation 100% 05/14/2021 8:00 AM CDT Inhaled Oxygen Concentration - - Weight 75.4 kg (166 lb 3.2 oz) 05/14/2021 5:00 A M CDT Height 149.9 cm (4' 11 ) 05/11/2021 3:15 PM CDT Body Mass Index 33.57 05/11/2021 3:15 PM CDT Plan of Treatment Health Maintenance Due Date Last Done Comments DIABETES ANNUAL FOOT EXAM 1960 DIABETES ANNUAL RETINAL EXAM 1960 DIABETES MICROALBUMIN ANNUAL SCREEN 1960 LDL CHOLESTEROL ANNUAL 1960 DTAP/TDAP/TD VACCINES (1 - Tdap) 1961 ZOSTER VACCINE (1 of 2) 1992 OSTEOPOROSIS SCREENING 2007 DIABETES HBA1C Q 6 MONTHS 04/08/2013 10/09/2012 RSV VACCINE (60+ or ) (1 - 1-dose 75+ series) 2017 INFLUENZA VACCINE (#1) 2024 9, 07/16/2018, 07/26/2017, Additional history exists PNEUMOCOCCAL VACCINE 50+ YEARS Completed 07/15/2019 , 07/26/2017 Medical Devices Implanted Type Area Ferryboat Captain Device Identifier Shelf Expiration Date Model / Serial / Lot Hemostatic Surgiflo 8ml W/Thrombin 2994 - [id number] Implanted:Qty: 1 on 05/03/2021 by Pedro Valdivia MD at [facility] Hemostatic N/A: Spine Cervical Anterior J[employer]J- [employer] 10/09/2022 2994 / / [id number] Hemostatic Surgiflo 8ml W/Thrombin 2994 - [id number] Implanted:Qty: 1 on 05/03/2021 by Pedro Valdivia MD at [facility] Hemostatic N/A: Spine Cervical Anterior J[employer]J- [employer] 10/09/2022 2994 / / [id number] I Factor 2.5 Cc Implanted:Qty: 1 on 05/03/2021 by Pedro Valdivia MD at [facility] Other N/A: Spine Cervical Anterior [employer] 12/08/2023 [id number] / / [id number] Description:ITEM ADD-RDJ Variable Angle Screw 03.5mm L 14mm Self-Drilling Pk/2 Implanted:Qty: 1 on 05/03/2021 by Pedro Valdivia MD at [facility] Other N/A: Spine Cervical Anterior [employer] [id number] 4-SD-SP / / Description:ITEM ADD-RDJ Csts Stand Alone Ifd17w X 14d X 7h Deg Implanted:Qty: 2 on 05/03/2021 by Pedro Valdivia MD at [facility] Other N/A: Spine Cervical Anterior [employer] CSTS-SA- [id number] / / Description:ITEM ADD-RDJ 2-Level 32mm Cervical Plate Implanted:Qty: 1 on 05/03/2021 by Pedro Valdivia MD at [facility] Plate N/A: Spine Cervical Anterior ZAVATION 300-0232 / STERILIZ ED [id number] / LOAD#[id number] Description:ITEM ADD-RDJ CARMEN REQ#[id number] Screw Variable Sd 4.0mm X 14mm Implanted:Qty: 6 on 05/03/2021 by Pedro Valdivia MD at [facility] Screw N/A: Spine Cervical Anterior ZAVATION [id number] / STERILIZ ED [id number] / LOAD#[id number] Description:ITEM ADD-RDJ Insurance [employer] [facility] [employer] Medicare Part D Advance Directives For more information, please contact: [phone] * Full Code (Latest Code Status on File) Date Activated Date Inactivated Comments 05/11/2021 9:01 PM 05/14/2021 6:31 PM * Full Code Date Activated Date Inactivated Comments 05/03/2021 1:53 PM 05/05/2021 8:18 PM Care Teams Tobacco Classer Relationship Specialty Start Date End Date Oscar Garrett MD PCP - General Family Practice 11/06/11
--- OUTSIDE RECORDS SUMMARY | 2025-01-12 09:32 | XMS_ITS | Referral Summary ---
Author Organization [facility] Address [address] [place] [id number] Care Team Providers Care Corncob Pipe Supervisor Name Role Phone Oscar Garrett MD Primary Care Provider [phone] Pedro Quintana MD Unavailable + Jessie Cabrera RN Unavailable Unavailable Encounters Date Type Department Care Team Description 12/22/2024 Telephone [facility] Nephrology [address] [place] [address] 5th [place] [address] [place] [phone] Yasmani Tolentino MD Appointment Reminder Call 11/26/2024 Orders Only [facility] Cardiothoracic Surgery [address] [place] [address] [facility] 8th Floor [address] Room [address] [place] [phone] Isabel Pinedo MD Ascending aortic aneurysm, unspecified whether ruptured (Primary Dx) 11/25/2024 11:00 AM CDT Office Visit [facility] Cardiothoracic Surgery [address] [place] [address] 8th Floor [address] Room [address] [place] [phone] Kamilah Prescott NP Ascending aorta enlargement (Primary Dx) 11/25/2024 9:41 AM CDT - 11/25/2024 11:59 PM CDT Hospital Encounter [facility] [address] [place] [id number] Isabel Pinedo MD Coronary artery disease involving stebbins coronary artery of stebbins heart without angina pectoris Discharge Disposition: Discharge to home or self care from Last 3 Months Allergies Active Allergy Reactions Criticality Noted Date Comments Isosorbide Mononitrate Headache Medium 12/31/2018 Levofloxacin Swollen tongue,Hives High 10/07/2018 Medications traMADol (ULTRAM) 50 mg tablet Take 1 tablet (50 mg total) by mouth every 6 (six) hours as needed 09/15/2018 Active JANUVIA 100 mg tabletIndicatio ns:type 2 diabetes mellitus Take 1 tablet (100 mg total) by mouth daily 09/11/2018 Active aspirin 81 mg tablet Take 1 tablet (81 mg total) by mouth daily Active nitroglycerin (NITROSTAT) 0.[address] 1 tablet (0.4 mg total) under the tongue every 5 (five) minutes as needed for chest pain May repeat dose q 5 min, up to 3 doses total 100 tablet 11 12/23/2018 Active amLODIPine (NORVASC) 5 mg tablet Take 1 tablet (5 mg total) by mouth daily 12/04/2019 Active ascorbic acid, vitamin C, (VITAMIN C) 1,000 mg CR tablet Take 1 tablet (1,000 mg total) by mouth daily Active multivitamin capsule Take 1 capsule by mouth daily Active olmesartan-hydr ochlorothiazide (BENICAR HCT) 40-25 mg per tablet Take 1 tablet by mouth daily Active carvediloL (COREG) 25 mg tablet TAKE 1 TABLET TWICE DAILY WITH MEALS 180 tablet 01/16/2022 Active spironolactone (ALDACTONE) 25 mg tablet TAKE 1/2 TABLET BY MOUTH DAILY AT 9AM (VIAL) 45 tablet 06/14/2022 Active blood glucose diagnostic (glucose blood) strip blood glucose test strips check BS daily Active atorvastatin (LIPITOR) 20 mg tablet TAKE ONE TABLET BY MOUTH DAILY (VIAL) 11/19/2022 Active cyclobenzaprine (FLEXERIL) 10 mg tablet 10/22/2023 Active omeprazole (PriLOSEC) 20 mg capsule 10/22/2023 Active Active Problems Problem Noted Date Diagnosed Date Stage 3b chronic kidney disease 07/26/2022 Coronary artery disease invo lving stebbins coronary artery of stebbins heart without angina pectoris 05/26/2019 Aneurysm of ascending aorta 11/27/2018 Hypertension 10/07/2018 Ascending aorta enlargement 10/07/2018 Sleep apnea 10/07/2018 Hyperlipidemia 10/09/2012 Transient cerebral ischemic attack 10/09/2012 Type 2 diabetes mellitus without complications 0 10/09/2012 Resolved Problems Problem Noted Date Diagnosed Date Resolved Date Stage 2 chronic kidney disease 01/18/2022 07/26/2022 Social History Tobacco Use Types Packs/Day Years Used Date Smoking Tobacco: Never Smokeless Tobacco: Never Alcohol Use Standard Drinks/Week Comments No 0 (1 standard drink = 0.6 oz pur e alcohol) Comments Unknown Sex and Gender Information Value Date Recorded Sex Assigned at Not on file 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 Gender Identity Not on file Sexual Orientation Not on file Last Filed Vital Signs Vital Sign Reading Time Taken Comments Blood Pressure 100/63 11/25/2024 11:19 AM CDT Pulse 70 11/25/2024 11:19 AM CDT Temperature 36.6 C (97.9 F) 01/24/2023 9:40 AM CDT Respiratory Rate 16 01/15/2019 9:53 AM CDT Oxygen Saturation 98% 11/25/2024 11:19 AM CDT Inhaled Oxygen Concentration - - Weight 70.5 kg (155 lb 6.4 oz) 11/25/2024 11:19 AM CDT Height 149.9 cm (4' 11 ) 11/25/2024 11:19 AM CDT Body Mass Index 31.39 11/25/2024 11:19 AM CDT Plan of Treatment Not on file Medical Devices Implanted Type Area Rn Surgical Device Identifier Shelf Expiration Date Model / Serial / Lot [employer]el Vascular [id number] System Coronary Stent Xience Josiane Everolimus L18 Mm Od3.5 Mm Rapid Exchange - [id number] Implanted:Qty: 1 on 01/01/2019 by Royer Peterson MD at [facility] [employer] 05/29/2019 [id number] / / Procedures Procedure Name Priority Date/Time Associated Diagnosis Comments CT CHEST ABDOMEN PELVIS WO CONTRAST Schedule Routine, Read Routine (OP Routine) 11/25/2024 10:52 AM CDT Coronary artery disease involving stebbins coronary artery of stebbins heart without angina pectoris POCT CREATININE - DEVICE Routine 11/25/2024 9:59 AM CDT EGFR Routine 01/18/2022 10:26 AM CDT Stage 2 chronic kidney disease LIPID PANEL Routine 06/10/2020 8:26 AM CDT Coronary artery disease involving stebbins coronary artery of stebbins heart without angina pectoris Essential hypertension Aneurysm of ascending aorta Hyperlipidemia, unspecified hyperlipidemia type from Last 3 Months or Most Recently Relevant to Health Maintenance Results * CT Chest Abdomen Pelvis WO Contrast (11/25/2024 10:52 AM CDT) Anatomical Region Laterality Modality Body N/A Computed Tomogra phy 11/25/2024 11:3 4 AM CDT Impressions 11/25/2024 12:18 PM CDT Stable mild dilatation of the ascending thoracic aorta measuring up to 47 mm. Dictated by: Rob Mckeon MD The radiology attending physician has personally reviewed this study, and had reviewed and/or edited this written report and agrees with it. Electronically signed by: Norbert Rivas MD, PHD Narrative 11/25/2024 12:18 PM CDT EXAMINATION: CT of the chest, abdomen, and pelvis without intravenous contrast. HISTORY: Aortic aneurysm follow-up. TECHNIQUE: Transaxial computed tomographic images of the chest, abdomen, and pelvis were obtained without contrast according to standard protocol. COMPARISON: CT 11/20/2023. FINDINGS: CHEST: Aortic measurements: Tubular ascending thoracic aorta at the level of the main pulmonary artery: 47 x 46 mm Sinuses of valsalva obscured by motion but grossly similar in size. Sinotubular junction: 37 x 35 mm Subcentimeter left hemithyroid nodule. Right hemithyroid is surgically absent. No suspicious axillary, supraclavicular, mediastinal, or axillary lymphadenopathy. Thoracic aorta is mildly atherosclerotic but normal in caliber. Main pulmonary arteries normal caliber. Heart size is normal without pericardial effusion. Multivessel coronary artery calcifications. Changes of left anterior descending coronary artery stenting. Esophagus is nondistended. Minimal right basilar and right middle lobe atelectasis. No consolidation, pleural effusion, or pneumothorax. Central airways are patent. ABDOMEN AND PELVIS: Liver has a normal noncontrast appearance. No biliary ductal dilatation. Gallbladder, spleen, pancreas, and adrenal glands have normal noncontrast appearance. No hydronephrosis or nephrolithiasis. Urinary bladder is nondistended. No suspicious adnexal lesions. Colonic diverticulosis without diverticulitis. No focal bowel wall thickening or evidence of obstruction. No ascites or pneumoperitoneum. No suspicious mesenteric or retroperitoneal lymphadenopathy. Severe calcified atherosclerosis of the abdominal aorta and its branch vessels, which are normal in caliber. Degenerative changes of the thoracolumbar spine. No suspicious osseous lesions. Partially imaged anterior cervical discectomy and instrumented fusion. Procedure Note Norbert Rivas MD PhD - 11/25/2024 EXAMINATION: CT of the chest, abdomen, and pelvis without intravenous contrast. HISTORY: Aortic aneurysm follow-up. TECHNIQUE: Transaxial computed tomographic images of the chest, abdomen, and pelvis were obtained without contrast according to standard protocol. COMPARISON: CT 11/20/2023. FINDINGS: CHEST: Aortic measurements: Tubular ascending thoracic aorta at the level of the main pulmonary artery: 47 x 46 mm Sinuses of valsalva obscured by motion but grossly similar in size. Sinotubular junction: 37 x 35 mm Subcentimeter left hemithyroid nodule. Right hemithyroid is surgically absent. No suspicious axillary, supraclavicular, mediastinal, or axillary lymphadenopathy. Thoracic aorta is mildly atherosclerotic but normal in caliber. Main pulmonary arteries normal caliber. Heart size is normal without pericardial effusion. Multivessel coronary artery calcifications. Changes of left anterior descending coronary artery stenting. Esophagus is nondistended. Minimal right basilar and right middle lobe atelectasis. No consolidation, pleural effusion, or pneumothorax. Central airways are patent. ABDOMEN AND PELVIS: Liver has a normal noncontrast appearance. No biliary ductal dilatation. Gallbladder, spleen, pancreas, and adrenal glands have normal noncontrast appearance. No hydronephrosis or nephrolithiasis. Urinary bladder is nondistended. No suspicious adnexal lesions. Colonic diverticulosis without diverticulitis. No focal bowel wall thickening or evidence of obstruction. No ascites or pneumoperitoneum. No suspicious mesenteric or retroperitoneal lymphadenopathy. Severe calcified atherosclerosis of the abdominal aorta and its branch vessels, which are normal in caliber. Degenerative changes of the thoracolumbar spine. No suspicious osseous lesions. Partially imaged anterior cervical discectomy and instrumented fusion. IMPRESSION: Stable mild dilatation of the ascending thoracic aorta measuring up to 47 mm. Dictated by: Rob Mckeon MD The radiology attending physician has personally reviewed this study, and had reviewed and/or edited this written report and agrees with it. Electronically signed by: Norbert Rivas MD, PHD Isabel Pinedo MD IMG CT PROCEDURES Final Result * (ABNORMAL) POCT creatinine (11/25/2024 9:59 AM CDT) Creatinine POC 2.1(H) 0.6 - 1.1 mg/dL Blood 11/25/2024 9:59 AM CDT 11/25/2024 9:59 AM CDT Isabel Pinedo MD LAB POCT ORDERABLES - DEVICE Fin al Result Performing Organization Address City/State/[facility] Co de Phone Number [facility] [place] [address] * (ABNORMAL) eGFR (01/18/2022 10:26 AM CDT) Pathologist [facility] eGFR 24(L) 90 - 130 mL/min/1. 73 m2 [facility] Comment: Interpretive Data Reference Interval Normal >/= 90 mL/min/1.73m2 Mildly decreased* 60 - 89 mL/min/1.73m2 Mildly to moderately decreased 45 - 59 mL/min/1.73m2 Moderately to severely decreased 30 - 44 mL/min/1.73m2 Severely decreased 15 - 29 mL/min/1.73m2 Kidney Failure < 15 mL/min/1.73m2 *Relative to young adult level Estimated glomerular filtration rate is determined by the 2020 CKD-EPI equation recommended by the National Kidney Foundation (A Unifying Approach to GFR Estimation: Recommendations of the NKF-ASK Task Force on Reassessing the Inclusion of Race in Diagnosing Kidney Disease, JASN 202). The CKD-EPI equation should not be used for patients with unstable renal function and has not been validated in children and those over 70. Current interpretive data was last reviewed 2021. Blood 01/18/2022 10:2 6 AM CDT 01/18/2022 10:54 AM CDT us Yasmani Tolentino MD LAB BLOOD ORDERABLES Fin al Result [facility] [place] [address] * (ABNORMAL) Lipid panel (06/10/2020 8:26 AM CDT) Cholesterol 122 <200 mg/dL [facility] HDL 36(L) > OR = 50 mg/dL [facility] Triglycerides 111 <150 mg/dL [facility] LDL 67 mg/dL (calc) [facility] Comment: Reference range: <100 Desirable range <100 mg/dL for primary prevention; <70 mg/dL for patients with CHD or diabetic patients with > or = 2 CHD risk factors. LDL-C is now calculated using the Boston-Mclaughlin calculation, which is a validated novel method providing better accuracy than the Friedewald equation in the estimation of LDL-C. Boston SS et al. RUIZ. 2013;310(19): 8561-4311 (http://education.[employer].BioIQ/faq/BPE650) Chol/HDL ratio 3.4 <5.0 (calc) [facility] Non-HDL, (LDL+VLDL) 86 <130 mg/dL (calc) [facility] Comment: For patients with diabetes plus 1 major ASCVD risk factor, treating to a non-HDL-C goal of <100 mg/dL (LDL-C of <70 mg/dL) is considered a therapeutic option. Blood specimen (specimen) 06/10/2020 8:26 AM CDT 06/10/2020 8:26 AM CDT Narrative [facility] - 06/11/2020 3:39 AM CDT FASTING:YES FASTING: YES us Anita Aguilar MD LAB BLOOD ORDERABLES Final Result [facility] [id number] [place] [phone] from Last 3 Months or Most Recently Relevant to Health Maintenance Insurance [employer] MEDICARE [facility] Address: [address] [address] [employer] MED[employer]ARE [employer] Address: [address] [address] [place] [address] [employer] MEDICARE [employer] Address: [facility] [address] [place] [address] Advance Directives For more information, please contact: [phone] * Full Code (Latest Code Status on File) Date Activated Date Inactivated Comments 01/01/2019 5:48 PM 01/01/2019 11:13 PM Care Teams Corncob Pipe Supervisor Relationship Specialty Start Date End Date Oscar Garrett MD [facility] [place] [address] PCP - General Family Medicine 10/01/18 Pedro Quintana MD [facility] [place] [address] Consulting Physician Orthopedic Surgery 01/27/21 Jessie Cabrera, pulvi mixer operator Failure Coordinator 04/10/23
--- OUTSIDE RECORDS SUMMARY | 2025-01-12 09:32 | XMS_ITS | Continuity of Care Document ---
Author Organization [facility] Address [address] [facility] [address] [place] [address] Phone Care Team Providers Care Torch Shearer Name Role Phone Lilian DIAZ, Pedro Unavailable Unavai lable Allergies, Adverse Reactions, Alerts Substance Reaction Status [...] Date Provider Providers Copied on Encounter [facility] [employer], [address] [address], [place], [place], [id number], [place] tel:[phone] [facility] No Information Lilian nayak. [address] [facility], [address], [address] [place] [address] , [place]. tel: [phone] [facility], [address] [place] [address], [id number], [place] tel:[phone] [facility] cervical spine (chief complaint)c ervical (chief complaint) CervicalgiaSpi nal stenosis, cervical regionCervical disc disorder with myelopathy, unsp cervical region Sep-0 1 Lilian Sorianooph er. [address] [facility], [address] [address], [place], [place], [id number] , [place]. tel: [phone] Referring Provider: Pedro Vick, [address] [place] [address], [place], [address]. tel:[phone] Office/outpa tient visit,est, [facility], [address] [place] [address], [id number], tel:[phone] [facility] cervical (chief complaint)c ervical spine (chief complaint) CervicalgiaCer vical disc disorder with myelopathy, unsp cervical regionSpinal stenosis, cervical region Aug-0 1 Lilian Sorianooph er. [address] [place] [address], [place], [place], [id number] , [place]. tel:[phone] Referring Provider: Vega Guajardo, [address] [place] [address], [place], [address]. tel:[phone] Office/outpa tient visit,est, [facility], [address] [place] [address], [id number], [place] tel:[phone] [facility] cervical (chief complaint)c ervical spine (chief complaint) CervicalgiaCer vical disc disorder with myelopathy, unsp cervical regionSpinal stenosis, cervical region Goran-0 8 1 Lilian Sorianooph er. [address] [facility], [address], [id number] , [place]. tel:[phone] Referring Provider: Pedro Vick, [facility] [facility] [address], [place], [address]. tel:[phone] Office/outpa tient visit,new, [facility], [address] [facility] [address], [place], [place], [id number], tel:[phone] [facility] cervical (chief complaint)g eneral orthopedic (chief complaint) Spinal stenosis, cervical regionCervical disc disorder w/ myelopathyCerv icalgia 1 Lilian Sorianooph er. [address] [facility], [address], [place], [place], [id number] , [place]. tel:[phone] Referring Provider: Pedro Vick, [address] [facility] [address], [place], [address]. tel:[phone] [facility], [address] [address], [place], [place], [id number], tel:[phone] [facility] cervical (chief complaint) Cervicalgia 1 Lilian Brody er. [address] [facility], [address], [place], [place], [id number] , [place]. tel:[phone] Referring Provider: Vega Guajardo, [address] [facility] [address], [place], [address]. 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 She states that she [...] comes into the office for cervical spine. heidi Guallpa comes into the office for cervical spine. Functional Status Date Functional Assessmen t No Information Instructions Date Instruction Additional Infor matkim Plan of Care:Temitope Verdin is a pleasant [...] was entered by Zaynab Moeller, acting as Call Centre Supervisor for Pedro Quintana MD. Related to Cervical disc disorder with myelopathy, [facility] cervical region Plan of Care:Temitope Verdin is [...] require neuromonitoring. This will be done at [facility], and we will perform preoperative, prepositional motor [...] was entered by Zaynab Moeller, acting as Call Centre Supervisor for Pedro Quintana MD. Related to Spinal [...] to reach out to my colleagues in [facility] to discuss this procedural plan for their [...] was entered by Zaynab Moeller, acting as Call Centre Supervisor for Pedro Quintana MD Related to Cervical disc disorder with myelopathy, [facility] cervical region Plan of Care: Roverto Mccallum [...] screws at C3-4 and C4-5. I did beauty counselor her that this will be an inpatient procedure with a 1 to 2-day hospital stay. We will do this with neuromonitoring. The medical record documentation of this Provider's service encounter was entered by Zaynab Moeller, acting as Call Centre Supervisor for Pedro Quintana MD. Related to Cervicalgia Assessments Type Assessment Date No Information Patient Care Teams Name Effective Dates (start - stop) Status Members No Information
--- OUTSIDE RECORDS SUMMARY | 2025-01-12 09:32 | XMS_ITS | CONTINUITY OF CARE DOCUMENT ---
Author Name [email or web address] Address Unknown Organization [facility] Address [address] [facility] [address] [place] [address] Phone [phone] Care Team Providers Care Ski Maker Wood Name Role Phone Moses DIAZ, Farooq Unavailable ZIGGY DIAZ, NEISHA Unavailable ZIGGY DIAZ, NEISHA Unavailable INSURANCE PROVIDERS Payer name Policy type / Coverage type [place] red green party ID [place] [employer] Medicare [id number]
--- OUTSIDE RECORDS SUMMARY | 2025-01-12 09:32 | XMS_ITS | Clinical Summary ---
Author Organization [facility] Address [address] [place] [address] Care Team Providers Care Special Assets Officer Name Role Phone Oscar Garrett MD Primary Care Provider [phone] Pedro Quintana MD Unavailable + Jessie Cabrera RN Unavailable Unavailable Allergies Active Allergy Reactions Criticality Noted Date [...] disease 07/26/2022 Coronary artery disease invo lving [place] coronary artery of [place] heart without angina pectoris 05/26/2019 Aneurysm of ascending aorta 11/27/2018 Hypertension 10/07/2018 Ascending aorta enlargement 10/07/2018 Sleep apnea 10/07/2018 Hyperlipidemia 10/09/2012 Transient cerebral ischemic attack 10/09/2012 Type 2 diabetes mellitus without complications 0 10/09/2012 Resolved Problems Problem Noted Date Diagnosed Date Resolved Date Stage 2 chronic kidney disease 01/18/2022 07/26/2022 Encounters Date Type Department Care Team Description 12/22/2024 Telephone [facility] Nephrology [address] [place] [address] 5th [place] [address] [place] [address] Yasmani Tolentino MD Appointment Reminder Call 11/26/2024 Orders Only [facility] Cardiothoracic Surgery [address] [place] [address] 8th [address] Room [address] [place] [phone] Isabel Pinedo MD Ascending aortic aneurysm, unspecified whether ruptured (Primary Dx) 11/25/2024 11:00 AM CDT Office Visit [facility] Cardiothoracic Surgery [address] [place] [address] 8th [address] Room [address] [place] [phone] Kamilah Prescott NP Ascending aorta enlargement (Primary Dx) 11/25/2024 9:41 AM CDT - 11/25/2024 11:59 PM CDT Hospital Encounter [facility] [address] [place], [place] [id number] Isabel Pinedo MD Coronary artery disease involving [place] coronary artery of [place] heart without angina pectoris Discharge Disposition: Discharge to home or self care from Last 3 Months Surgical History Surgery Date Site/Laterality Comments THYROIDECTOMY, PARTIAL HYSTERECTOMY W/ BILATERAL SALPINGOOPHORECTOMY SECTION Medical History Medical History Date Comments Hypertension Hyperlipidemia Diabetes mellitus (HCC) Stroke (HCC) Sleep apnea Aortic aneurysm Chronic kidney disease Thyroid disease AAA (abdominal aortic aneurysm) Family History Medical History Relation Name Comments Stroke Father Hypertension Mother Stroke Mother Relation Name Status Comments Father Mother Social History Tobacco Use Types Packs/Day Years Used Date Smoking Tobacco: Never Smokeless Tobacco: Never Alcohol Use Standard Drinks/Week Comments No 0 (1 standard drink = 0.6 oz pur e alcohol) Comments Unknown Sex and Gender Information Value Date Recorded Sex Assigned at Not on file Legal Sex Female 12:19 AM TALKBACK HOST Gender Identity Not on file Sexual Orientation Not on file Obstetrics History Last Filed Vital Signs Vital Sign Reading [...] 11/25/2024 11:19 AM CDT Plan of Treatment Health Maintenance Due Date Last Done Comments Albumin Creatinine Ratio, Urine 1942 Depression Screening 1942 Fall Risk Assessment 1942 Hemoglobin A1C 1942 Osteoporosis Screening-Bone Density Scan 1942 Dilated Eye Exam 1942 Foot Exam 1942 DTaP/Tdap/Td Vaccine (1 - Tdap) 1953 Hepatitis B Screening 1960 Zoster Vaccine (1 of 2) 1992 Well Visit 65+ 2007 Lipid Panel 06/10/2021 06/10/2020, 08/01/2014 eGFR 01/18/2023 01/18/2022, 12/08, 06/10/2020, Additional history exists Influenza Vaccine (Season Ended) 2025 07/15/2019, 07/16/2018, 07/26/2017, Additional history exists Pneumococcal vaccine 65+ Completed 07/15/2019, 07/10 Medical Devices Implanted Type Area Fermentation Scientist Device Identifier Shelf Expiration Date Model / Serial / Lot [employer] [id number] System Coronary Stent Xience Josiane Everolimus L18 Mm Od3.5 Mm Rapid Exchange - [id number] Implanted:Qty: 1 on 01/01/2019 by Royer Peterson MD at [facility] [employer] 05/29/2019 [id number] / / Procedures Procedure Name Priority Date/Time Associated Diagnosis Comments CT CHEST ABDOMEN PELVIS WO CONTRAST Schedule Routine, Read Routine (OP Routine) 11/25/2024 10:52 AM CDT Coronary artery disease involving pit river coronary artery of [place] heart without angina pectoris POCT CREATININE - DEVICE Routine 11/25/2024 9:59 AM CDT EGFR Routine 01/18/2022 10:26 AM CDT Stage 2 chronic kidney disease LIPID PANEL Routine 06/10/2020 8:26 AM CDT Coronary artery disease involving [place] coronary artery of [place] heart without angina pectoris Essential hypertension Aneurysm [...] DEVICE Fin al Result Performing Organization Address [facility] Co de Phone Number [facility] Department [place] [address] * (ABNORMAL) eGFR (01/18/2022 10:26 AM CDT) eGFR 24(L) 90 - 130 mL/min/1. 73 m2 [facility] Comment: Interpretive Data Reference Interval Normal >/= [...] of Race in Diagnosing Kidney Disease, JASN 2020). The CKD-EPI equation should not be used for patients with unstable renal function and has not been validated in children and those over 70. Current interpretive data was last reviewed 2021. Blood 01/18/2022 10:2 6 AM CDT 01/18/2022 10:54 AM CDT Yasmani Tolentino MD LAB BLOOD ORDERABLES Fin al Result Performing Organization Address [facility]/State/ZIP Co de Phone Number [facility] [place] [address] * (ABNORMAL) Lipid panel (06/10/2020 8:26 AM [...] factors. LDL-C is now calculated using the Dat calculation, which is a validated novel method providing better accuracy than the Friedewald equation in the estimation of LDL-C. Boston SS et al. RUIZ. 2013;310(19): 3699-2044 (http://education.CartCrunch/faq/MUX034) Chol/HDL ratio 3.4 <5.0 (calc) [facility] [...] 06/11/2020 3:39 AM CDT FASTING:YES FASTING: YES Anita Aguilar MD LAB BLOOD ORDERABLES Final Result [facility] [address] [place] [address] from Last 3 Months or Most Recently Relevant to Health Maintenance Insurance [facility] MEDICARE ADVANTAGE [facility] MEDICARE ADVANTAGE [employer] MEDICARE ADVANTAGE Advance Directives For more information, please contact: [phone] * Full Code (Latest Code Status on File) Date Activated Date Inactivated Comments 01/01/2019 5:48 PM 01/01/2019 11:13 PM Care Teams Special Assets Officer Relationship Specialty Start Date End Date Oscar Garrett MD [facility] [place] [address] PCP - General Family Medicine 10/01/18 Pedro Quintana MD [facility] [place] [address] Consulting Physician Orthopedic Surgery 01/27/21 Jessie Cabrera, water quality specialist Failure Coordinator 04/10/23
--- OUTSIDE RECORDS SUMMARY | 2025-01-12 09:32 | XMS_ITS | Clinical Summary ---
Author Organization [facility] Address [address] [place] [address] Care Team Providers Care Art Specialist Name Role Phone None, Provider MD Primary Care Provider Unavaila ble Allergies Active Allergy Reactions Criticality Noted Date Comments Levofloxacin Unknown 04/03/2023 Medications amLODIPine (NORVASC) 5 MG tablet Take 1 tablet (5 mg total) by mouth daily. Active atorvastatin (LIPITOR) 20 MG tablet Take 1 tablet (20 mg total) by mouth daily. Active carvedilol (COREG) 25 MG tablet Take 1 tablet (25 mg total) by mouth 2 (two) times daily. Active clopidogrel (PLAVIX) 75 MG tablet Take 1 tablet (75 mg total) by mouth daily. Active SITagliptin (JANUVIA) 100 MG tablet Take 1 tablet (100 mg total) by mouth daily. Active Olmesartan Medoxomil-HCTZ 40-25 MG Tab Take 1 tablet by mouth daily. Active spironolactone (ALDACTONE) 25 MG tablet Take 0.5 tablets (12.5 mg total) by mouth daily. Active traMADol (ULTRAM) 50 MG tablet Take 1-2 tablets (50-100 mg total) by mouth every 6 (six) hours as needed for Pain. Active ondansetron (ZOFRAN-ODT) 4 MG disintegrating tabletIndications:A bdominal pain Take 1 tablet (4 mg total) by mouth every 8 (eight) hours as needed for Nausea. 20 tablet 4 Active Social History Tobacco Use Types Packs/Day Years Used Date Smoking Tobacco: Never Smokeless Tobacco: Never Tobacco Cessation:Counseling Given: Not Answered Alcohol Use Standard Drinks/Week Comments Not Currently 0 (1 standard drink = 0.6 oz pur e alcohol) Comments No Sex and Gender Information Value Date Recorded Sex Assigned at Not on file Legal Sex Female 6:46 PM CDT Gender Identity Not on file Sexual Orientation Not on file Last Filed Vital Signs Vital Sign Reading Time Taken Comments Blood Pressure 109/61 08/11/2024 6:31 PM ELEVATOR CONSTRUCTOR Pulse 78 08/11/2024 6:31 PM ELEVATOR CONSTRUCTOR Temperature 36.9 C (98.4 F) 08/11/2024 6:31 PM ELEVATOR CONSTRUCTOR Respiratory Rate 18 08/11/2024 6:31 PM ELEVATOR CONSTRUCTOR Oxygen Saturation 99% 08/11/2024 6:31 PM ELEVATOR CONSTRUCTOR Inhaled Oxygen Concentration - - Weight 70.8 kg (156 lb) 08/11/2024 6:31 PM ELEVATOR CONSTRUCTOR Height 149.9 cm (4' 11 ) 08/11/2024 6:31 PM ELEVATOR CONSTRUCTOR Body Mass Index 31.51 08/11/2024 6:31 PM ELEVATOR CONSTRUCTOR Plan of Treatment Health Maintenance Due Date Last Done Comments DTaP, Tdap and Td Vaccines ( 1 - Tdap) 1961 Zoster Vaccines (1 of 2) 1992 Annual Medicare Wellness Visit 2007 Dexa Scan (General) 2007 RSV Immunization or 60+ Years (1 - 1-dose 75+ series) 2017 COVID-19 Vaccine ( - 2023-2 5 season) 2024 Pneumococcal Vaccine: 50+ Years Completed 07/15/2019, 07/26/2017 Meningococcal B Vaccine Aged Out No l onger eligible based on patient's age to complete this topic Meningococcal Vaccine Aged Out No lizette job eligible based on patient's age to complete this topic RSV Immunizations Under 20 Months Aged Out No longer eligible b ased on patient's age to complete this topic Insurance [facility] Care Teams Art Specialist Relationship Specialty Start Date End Date None, Provider, PCP - General UNKNOWN PHYSICIAN SPECIALTY 02/15/24
[2025-01-12 09:38] LABS: Eosinophils Percent Auto 0.2 % (0-4.4); Hematocrit 36.9 % (37.0-47.0); Hemoglobin 11.7 g/dL (12.0-15.0); Immature Granulocyte Absolute 0.02 K/mm3 (0.00-0.031); Immature Granulocyte Percent A 0.4 % (0-0.5); Lymphocytes Absolute Auto 1.48 K/mm3 (0.9-3.2); Lymphocytes Percent Auto 31.5 % (18.3-44.2); Mean Corpuscular HGB Conc 31.7 g/dl (32-36); Mean Corpuscular Hemoglobin 28.8 pg (26-34); Mean Corpuscular Volume 90.9 fl (80-100); Mean Platelet Volume 9.8 fl (7.4-10.4); Monocytes Absolute Auto 0.5 K/mm3 (0.1-0.6); Monocytes Percent Auto 10.4 % (2.6-8.5); Neutrophils Absolute Auto 2.7 K/mm3 (1.3-6.7); Neutrophils Percent Auto 57.5 % (45.5-73.1); Platelet Count Result 182 k/mm3 (150-375); Red Blood Count 4.06 M/mm3 (4.2-5.4); Red Cell Distribution Width 13.7 % (11.5-14.5); White Blood Count 4.7 K/mm3 (4.5-10.0)
[2025-01-12 09:39] LABS: Add Urine Microscopic? NO; Appearance Urine Clear (Clear); Bilirubin Urine Negative (Negative); Blood Urine Negative (Negative); Color Urine Yellow (Yellow); Glucose Urine UA Negative (Negative); Ketones Urine Trace mg/dL (Negative); Leukocyte Esterase Ur Negative LEU/UL (Negative); Nitrate Urine Negative (Negative); Protein Urine Negative (Negative); Specific Grav Ur 1.013 (1.001-1.035); pH Urine 6.5 (5.0-9.0)
[2025-01-12 09:52] LABS: Albumin Level 4.2 g/dL (3.5-5.1); Anion Gap 6 mmol/L (4-12); Blood Urea Nitrogen 32 mg/dL (7-17); Calcium 9.1 mg/dL (8.4-10.2); Carbon Dioxide 29 mmol/L (22-30); Chloride 105 mmol/L (98-107); Estimated Glomerular Filt Rate 27; Glucose 124 mg/dL (65-110); Potassium 4.5 mmol/L (3.4-5.0); Sodium 140 mmol/L (137-145)
== END 2025-01-12 08:59 | disposition home or self-care (01) ==
DX: N18.32 Chronic kidney disease, stage 3b (principal); E11.9 Type 2 diabetes mellitus without complications; I10 Essential (primary) hypertension
CPT/HCPCS: 36415; 80069; 81003; 85025

== ENCOUNTER 2025-07-06 09:49 | Outpatient (CLI) | payer MEDICARE, SELFPAY ==
--- OUTSIDE RECORDS SUMMARY | 2021-06-26 05:59 | XMS_ITS | Continuity of Care Document ---
Author Organization [facility] Address [address] [facility] [place] [address] Phone Care Team Providers Care Hydrometeorological Technician Name Role Phone Lilian DIAZ MD, [place] Unavailable Michelle vailable Allergies, Adverse Reactions, Alerts Substance Reaction Status Criticality No Known Allergies Active No Inform ation Medications Medication Instructions Dosage Effective Dates (start - stop) Status Comments Januvia 25 mg tablet - Active AMLODIPINE-ATORVASTATI N (unknown strength) Not Available - Active CARVEDILOL (unknown strength) Not Available - Active SPIRONOLACTONE-HCTZ (unknown strength) Not Available - Active ASPIRIN EC (unknown strength) Not Available - Active VITAMIN C (unknown strength) Not Available - Active Procedures Procedure Date X-ray exam Cervical 3 Views Or Less Global/Postop followup visit Office/outpatient visit,est, mod 2020 Office/outpatient visit,est, mod 2020 X-ray exam Cervical 3 Views Or Less Office/outpatient visit,new, mod 2020 Advance Directives Directive Yes / No Effective Date File Name No Information Encounters Encounter Description Practice Location Reason(s) For Visit Diagnoses Date Provider Providers Copied on Encounter [facility], [address], [id number], tel:[phone] [facility] No Information Lilian DIAZ Brody . [address] [facility], [address], [place], [place], [id number] , . tel: [phone] [facility], [address] [place] [address], [id number], tel:[phone] [facility] cervical spine (chief complaint)c ervical (chief complaint) CervicalgiaSpi nal stenosis, cervical regionCervical disc disorder with myelopathy, unsp cervical region Sep-0 1 Lilian Skinner er. [address] [facility], [place] [address], [place], [place], [id number] , [place]. tel: [phone] Referring Provider: Pedro Vick, [address] [place] [address], [place], [address]. tel:[phone] Office/outpa tient visit,est, [facility], [address] [place] [address], [id number], [phone] [facility] cervical (chief complaint)c ervical spine (chief complaint) CervicalgiaCer vical disc disorder with myelopathy, unsp cervical regionSpinal stenosis, cervical region Aug-0 1 Lilian Skinner er. [address] [address], [place], [place], [id number] , [place]. tel: [phone] Referring Provider: Vega Guajardo, [address] [place] [address], [place], [address]. tel:[phone] Office/outpa tient visit,est, [facility], [address] [place] [address], [id number], [place] tel:[phone] [facility] cervical (chief complaint)c ervical spine (chief complaint) CervicalgiaCer vical disc disorder with myelopathy, unsp cervical regionSpinal stenosis, cervical region Goran-0 1 Lilian Skinner er. [address] [place] [address], [address], [id number] , [place]. tel: [phone] Referring Provider: Pedro Quintana MD P, [address] [facility] [address], [place], [address]. tel:[phone] Office/outpa tient visit,new, [facility], [address] [address], [place], [place], [id number], tel:[phone] [facility] cervical (chief complaint)g eneral orthopedic (chief complaint) Spinal stenosis, cervical regionCervical disc disorder w/ myelopathyCerv icalgia 1 Lilian Skinner er. [address] [facility], [address] [facility], [place], [place], [id number] , [place]. [phone] Referring Provider: Pedro Quintana MD P, [address] [facility] [address] [facility], [place], [address]. tel:[phone] [facility], [address], [id number], [place] tel:[phone] [facility] cervical (chief complaint) Cervicalgia 1 Lilian Skinner er. [address] [facility], [address] [facility], [place], [place], [id number] , [place]. tel: [phone] Referring Provider: Vega Guajardo, [address] [facility] [address] [facility] named [facility], [place], [address]. tel:[phone] Family History Family Member Type Diagnosis Age At Onset Father Problem (finding) Hypertension Mother Problem (finding) Hypertension Mother Problem (finding) Osteoarthritis Payers Payer name Insurance type Covered libertarian ID Authoriza tion(s) [employer] [id number] [place] [employer] [facility] [id number] Social History Type Description Quantity Date Captured Comments Alcohol Use Details Unknown Caffeine Use Details Unknown Tobacco Use Status No Information Smoking Status No Information Sex Female Chief Complaint And Reason For Visit No Information Reason For Referral Reason For Referral No Information Plan Of Treatment Date Type Action Status Referral Ordered: CT scan Cervical Spine WO Contrast spine, cervical Appointment date/timeframe: 12/15/2020 ordered Referral Ordered: CT scan Lumbar Spine WO Contrast spine, lumbar ordered History Of Present Illness Encounter Date Complaint History Of Prese nt Illness heidi uGallpa comes into the office for a post op visit. cervical spine Saloni duong is a pleasant 80-year-old female who follows up 2 weeks status post 2-level anterior cervical discectomy and fusion for myelopathy. She is demonstrating interval change and improvement in her symptoms. She was recently hospitalized postoperatively for swallowing difficulties, at which time she was started on a course of intravenous steroids. She also underwent a speech therapy evaluation at that time. Over the course of approximately 48 hours, the patient had improvement in her symptoms to the point where she could tolerate liquids and soft foods, and she was subsequently discharged.Today, the patient indicates that her pain is much improved. Her swallowing is improving, and she feels stronger. 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 She was scheduled for a posterior cervical decompression and fusion; however, after establishing baseline motor preoperatively, she was positioned on the table prone and all motors were lost. She was then positioned back to a supine position on the bed, and the motors returned. The patient was then awoken from anesthesia, and the surgery was canceled. heidi Guallpa comes into the office for a pre surgical discussion. cervical spine Saloni duong is a pleasant 80-year-old female who follows up for myelopathy and spinal stenosis. Of note, the patient underwent an attempted posterior cervical decompression and fusion last week; however, during positioning, the pre-positioning motor responses were lost and could not be recovered. Therefore, we returned her to a supine position, and we had returned with the preoperative motors to her baseline. We woke her from anesthesia, and she was found to be neurologically at her baseline. The patient is here today for a follow-up evaluation. heidi Guallpa comes into the office for cervical spine. 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 She states that she has had a steady decline of her function over the last 9 months. She states that her hand are the most severely affected, more on the left than the right. The patient states she has had bilateral carpal tunnel surgeries in an attempt to improve her hand function; however, these did not provide relief. cervical Saloni comes into the office for cervical spine. cervical Saloni comes into the office for cervical spine. Functional Status Date Functional Assessmen t No Information Instructions Date Instruction Additional Infor mation Plan of Care:Temitope Verdin is a pleasant 80-year-old female who is 2 weeks status post 2-level anterior cervical discectomy and fusion at C3-4 and C4-5, performed for myelopathy. She has had interval improvement in her symptoms. Based upon the improvement, we do not need to consider a posterior cervical fusion at this time as she is clinically improving. Her swallowing is improving, and I believe it will continue to do so. She did not require pain medication today. The patient will follow up with me in 4 weeks for a reevaluation.The medical record documentation of this Provider's service encounter was entered by Zaynab Moeller, acting as Kinder Teacher for Pedro Quintana MD. Related to Cervical disc disorder with myelopathy, [facility] cervical region Plan of Care:Temitope Verdin is a pleasant 80-year-old female who has severe spinal stenosis and myelopathy at C3-4 and C4-5. She had positioning issues at her previous surgery while attempting a posterior cervical decompression and fusion. At this point, I discussed her case with several colleagues. Based upon her persistent motor function when she was supine, I recommend an anterior cervical discectomy and fusion at C3-4 and C4-5 with 4WEB cages. This will require neuromonitoring. This will be done at [facility], and we will perform preoperative, prepositional motor monitoring and active intraoperative monitoring. I discussed with her the risks, benefits, and alternatives of this procedure at length, as well as the potential for paralysis postoperatively depending upon how her spine reacts. I also voiced with her that this may be the start of a series of procedures where we perform C3-4 and C4-5 anterior cervical discectomy and fusion initially, with plans for a posterior decompression and fusion at those same levels depending upon how she responds to the anterior procedure. At this point, I do not think that a posterior procedure alone is an option secondary to her loss of motors during her first attempt.The medical record documentation of this Provider's service encounter was entered by Zaynab Moeller, acting as Kinder Teacher for Pedro Quintana MD. Related to Spinal stenosis, cervical region Plan of Care:Temitope Verdin is a pleasant 80-year-old female with cervical myelopathy secondary to spinal stenosis at C3-4 and C4-5. Secondary to a loss of motor function, her previous surgery was abandoned. At this point, I am in a bit of a diagnostic and procedural conundrum. I am recommending that we consider an anterior cervical discectomy and fusion at C3-4 and C4-5 to treat her spinal stenosis. We would try this procedure while the patient is in a supine position. If this improves her symptoms significantly, this may be her only necessary procedure. However, if the patient has incomplete resolution or has continued symptoms that are significant, we may consider positioning her prone at a later date and performing the posterior cervical decompression and fusion from C3 to C6 as previously outlined. I am going to reach out to my colleagues in [facility] to discuss this procedural plan for their opinions.Of note, when she was supine, which would be her positioning for an anterior cervical discectomy and fusion, her motor potentials are all present. These were abnormal more on the left than the right, but were presents in bilateral upper and lower extremities. This was both prior to flipping her and after flipping her back into a supine position. When she was prone, we lost all motor potential. My theory is that if she can tolerate supine positioning, she could potentially tolerate an anterior cervical discectomy and fusion currently, and possibly a posterior procedure at a later date if necessary.The medical record documentation of this Provider's service encounter was entered by Zaynab Moeller, acting as Kinder Teacher for Pedro Quintana MD Related to Cervical disc disorder with myelopathy, [facility] cervical region Plan of Care: Roverto Mccallum is a pleasant 80-year-old female who has a 9-month history of progressive neurological decline. She has an MRI of the cervical spine that shows severe spinal stenosis C3-4 and C4-5 with myelomalacia of the cervical cord at C3-4. Given her examination, complaints, and the steady decline of her function, the patient fits the criteria for cervical myelopathy secondary to stenosis. I am going to request a CT scan of the cervical spine for preoperative planning. I did discuss with her at length the progressive nature of her condition and the potential need for surgical intervention. I did discuss with her that the purpose of the surgery is to stop the progression of her condition, and that any improvement she would see would be a positive outcome; however improvements are not necessarily guaranteed. Her left upper extremity is more affected than the right, and I do not know that I can guarantee any significant improvement in the strength or dexterity in the left hand. I believe that her pain can improve at least slightly postoperatively. The plan would be for an instrumented cervical decompression from C3 to C6 with an instrumented postoperative spinal fusion from C3 to C6. It looks as if she has an autofusion at C5-6; therefore, we may be able to get four points of fixation at C5 and C6, in addition to screws at C3-4 and C4-5. I did memorial counselor her that this will be an inpatient procedure with a 1 to 2-day hospital stay. We will do this with neuromonitoring. The medical record documentation of this Provider's service encounter was entered by Zaynab Moeller, acting as Kinder Teacher for Pedro Quintana MD. Related to Cervicalgia Assessments Type Assessment Date No Information Patient Care Teams Name Effective Dates (start - stop) Status Members No Information
[2025-07-06 10:55] LABS: Add Urine Microscopic? NO; Appearance Urine Clear (Clear); Glucose Urine UA Negative (Negative); Leukocyte Esterase Ur Negative LEU/UL (Negative); Nitrate Urine Negative (Negative); Specific Grav Ur 1.014 (1.001-1.035)
--- OUTSIDE RECORDS SUMMARY | 2025-07-06 11:12 | XMS_ITS | Data Portability ---
Author Organization [place] [facility] [employer], Main Office Address [address] [place] [address] Assessment Encounter Date Assessment Date Assessment LastModified by Organization Details LastModified Time 06/18/2024 06/18/2024 Flu Shot: recommended at pharmacy COVID vaccines: declines Tdap: unsure, recommended Pneumococcal: due for PCV20 Shingles: declines Mammograms: declines Colonoscopy: 03/24/2024 WWE: hysterectomy Eye exam: has appointment 03/2024 Dental exam: goes annually, has jane alvarez Not available 06/18/2024 16:12:59 12/23/2024 12/23/2024 D/w pt and her daughter about her findings and further plan of care. Explained pt about different options for pt. Pt declined for any testing at this time. Meds as directed. Good liquid intake and OTC supportive care explained in detail. BP dairy education given. Advised pt not to drive until back to their normal. Educated pt about alarming symptoms to monitor at home and call us back or get checked in ED. Cont f/u with Cardio at [place] on 01/11/25 or sooner if any concern. F/u with PCP in few weeks as directed. [email or web address] Not available 12/23/2024 12:36:08 Plan of Treatment Reminders Order Date Submit Date Provider Last Modified By Organization Details Last Modified Time Details Appointments None recorded. Lab lipid panel, serum 2024 025 [facility], 2022 Eugene Fernández, [address] [facility], [place], [address], 08:11:26 CMP, serum or plasma 09/24/ 2025 09/24/2 025 LISA [facility], 2022 Eugene Fernández, [address], [place], [address], 5 09:30:04 magnesium, serum or plasma 2024 025 [facility], 2022 Eugene Fernández, [address], [place], [address], 5 08:11:26 CBC w/ auto diff 2024 025 [facility], 2022 Eugene Fernández, [address], [place], [address], 5 08:11:26 TSH, ultra-sensi tive, serum 2024 025 [facility], 2022 Eugene Fernández, [address], [place], [address], 5 08:11:26 HbA1c (hemoglobin A1c), blood 2024 025 [facility], 2022 Eugene Fernández, [address], [place], [address], 5 08:11:26 CBC w/ auto diff [address] (Lab), [facility]0 [facility] [address], [place], [address], 4 08:15:27 HbA1c (hemoglobin A1c), blood [address] (Lab), [address] [facility] [address], [place], [address], 4 08:15:26 lipid panel, serum [address] (Lab), [address] [facility] [address], [place], [address], 4 08:15:26 CMP, serum or plasma [address] (Lab), [address], [place], [address], 08:15:[address] referral - Please call patient to schedule an appointment . Thank you. 2024 025 [email or web address] Zak Martinez MD, [address] [place], [address], 5 14:11:15 hand surgeon referral - Please call patient to schedule an appointment . Thank you. 2023 024 [email or web address] Alvaro Deleon MD, [address] [facility] [address], [place], [address], 4 08:38:26 gastroenter ologist referral 2023 024 [email or web address] [facility], [address], [address], [place], [address], 4 10:19:17 Procedures None recorded. Surgeries None recorded. Imaging None recorded. Medication Orders tramadol 50 mg tablet 2024 025 [facility] #[id number], [address], [place], [id number], 5 17:18:33 ondansetron 4 mg disintegrat ing tablet [address] [facility]66602, [address], [place], [id number], 5 16:49:18 meclizine 25 mg tablet [address] [facility] #98097, [address], [place], [id number], 5 16:48:42 fluticasone propionate 50 mcg/actuati on nasal spray,suspe nsion [address] [facility] #03092, [address], [place], [id number], 5 16:48:34 cetirizine 10 mg tablet [address] [facility] #23585, [address], [place], [id number], 5 16:48:03 ferrous sulfate 325 mg (65 mg iron) tablet [address] [facility] #87522, [address], [place], [id number], 5 16:48:29 tramadol 50 mg tablet 2023 024 [facility] #87952, [address], [place], [id number], 4 16:18:49 tramadol 50 mg tablet 2023 024 [facility] #79786, [address], [place], [id number], 4 15:48:16 Patient TargetsNo targets recorded. Patient Instructions Encounter Date Encounter Id Patient Instructions Last Modified By Organization Details Last Modified Time 12/23/2024 [id number] high blood pressure: care instructions Not available 12/23/2024 12:04:30 learning about high blood pressure Not available 12/23/2024 12:04:30 Reason for Referral Ripening Room Attendant Referral for Dark stools hematoemesis, dark stools, pt states for 1 year. Stable vitals Referring Physician: Ursula Tubbs, Family Medicine, Encounter Date: 01/21/2024 Hand Surgeon Referral for Bi lateral acquired trigger finger of middle fingers Please call patient to schedule an appointment. Thank you. Referring Physician: Ursula Tubbs Family Medicine, Encounter Date: 06/18/2024 Emissions Technician Referral for O bstructive sleep apnea syndrome Please call patient to schedule an appointment. Thank you. Referring Physician: Ursula Tubbs Family Medicine, Encounter Date: 06/02/2025 Results Created Date Observation Date Name Description Value Unit Range Abnormal Flag Note LastModifiedBy Organization Detail LastModifiedTime 01/25/20 24 01/24/2024 US, duple x, venou s, lower extre mity, unila teral No observ ation record ed. [facility] [address] [facility] [address], [place], [address], 01/27/2024 10:11:47 Result Notes None recorded. Problems Name Problem SNOMED Code Status Onset Date Resolution Date Notes Provider Name and Address Organization Details Recorded Time Generalize d chronic body pains 835002215 Active Not Available [facility] 4 02:30:51 Urticaria 888210372 Active Not Available [facility] 4 02:30:51 Abscess 409000984 Active Not Available [facility] 4 02:30:51 Chronic obstructiv e pulmonary disease 67225964 Active Not Available [facility] 4 02:30:51 Constipati on 13828209 Active Not Available [facility] 4 02:30:51 Acquired trigger finger 9768009 Active Not Available [facility] 4 02:30:51 Mammograph y abnormal 178235916 Active Not Available [facility] 4 02:30:52 Breast neoplasm screening abnormal 318319510 Active Not Available [facility] 4 02:30:52 Osteoarthr itis of joint of hand 31078610 Active Not Available [facility] 4 02:30:52 Acute renal impairment 962470359 Active Not Available [facility] 4 02:30:52 Muscle weakness 02893688 Active Not Available [facility] 4 02:30:52 Macular eruption 760108497 Active Not Available [facility] 4 02:30:52 Low back pain 296814896 Active Not Available [facility] 4 02:30:52 Labial cyst 836737702 Active Not Available [facility] 4 02:30:52 Peripheral nerve disease 359647999 Active Not Available [facility] 4 02:30:52 Hypoglycem ia 378448006 Active Not Available [facility] 4 02:30:52 Sinusitis 29618975 Active Not Available [facility] 4 02:30:52 Arthritis 8744751 Active Not Available [facility] 4 02:30:52 Hypertensi ve disorder 05950528 Active Ursula Tubbs, CAREER RESOURCE SPECIALIST [address] [facility], [facility] [address], [place], [address] , [facility] 5 17:20:27 Neuropathy 345923402 Active Not Available [facility] 4 02:30:52 Tension-ty pe headache 675516336 Active Not Available [facility] 4 02:30:52 Ingrowing toenail 081252199 Active Not Available [facility] 4 02:30:52 Hypothyroi dism 63868703 Active Not Available [facility] 4 02:30:52 Pain radiating to left flank 618261325 Active Not Available [facility] 4 02:30:52 Cerebral infarction 292808216 Active Not Available [facility] 4 02:30:52 Cough 44759939 Active Not Available [facility] 4 02:30:52 Hand pain 17408847 Active Not Available [facility] 4 02:30:52 Upper respirator y infection 27807435 Active Not Available [facility] 4 02:30:52 Hyperlipid emia 41589955 Active Not Available [facility] 4 02:30:52 Essential hypertensi on 34010366 Active Not Available [facility] 4 02:30:52 Tinea pedis 0692954 Active Not Available [facility] 4 02:30:52 Stomatitis 27847048 Active Not Available [facility] 4 02:30:52 Diabetes mellitus 64122526 Active type2 Not Available [facility] 4 02:30:52 Fatigue 56289375 Active Not Available [facility] 4 02:30:52 Breast lump 46107064 Active Not Available [facility] 4 02:30:52 History of cerebrovas cular accident 462420158 Active 2012 Not Available [facility] 4 02:30:52 Dehydratio n 79226124 Active 2021 Not Available [facility] 4 02:30:52 Impacted cerumen in right ear 2330498219781 103 Active 2022 Not Available [facility] 4 02:30:51 Hearing loss 00735151 Active 2022 Not Available [facility] 4 02:30:51 Headache 99992521 Active 2022 Not Available [facility] 4 02:30:52 Chronic neck pain 0458689215955 Active 2022 Not Available [facility] 4 02:30:51 Type 2 diabetes mellitus without complicati on 450183982 Active 2022 ASHLEIGH Jones [address], [place], [address] , [employer] [facility] [employer] [facility] 5 17:20:27 Chronic low back pain 325796844 Active 2022 Not Available [facility] 4 02:30:52 Vaginitis 32960030 Active 2022 Not Available [facility] 4 02:30:52 Gastroesop hageal reflux disease 524615642 Active 2023 Not Available [facility] 4 02:30:52 Injury of left shoulder 0692777858278 9100 Active 2023 Not Available [facility] 4 02:30:51 Dark stools 72030006 Active 2023 ASHLEIGH Jones [address], [address], [place], [address] , [place] [facility] 4 15:41:01 Edema of lower extremity 133272561 Active 2023 ASHLEIGH Jones [address], [address], [place], [address] , [facility] 4 10:45:36 Pain of right shoulder joint 9153067160369 9100 Active 2023 ASHLEIGH Jones [address], [address], [place], [address] , [place] [facility] 4 14:44:54 Bilateral acquired trigger finger of middle fingers 3913506719654 9105 Active 2023 ASHLEIGH Jones [address], [address], [place], [address] , [facility] 4 16:04:23 Acute bacterial sinusitis 60669234 Active 2023 ASHLEIGH Jones [address], [address], [place], [address] , [facility] 4 12:29:56 Dysfunctio n of right eustachian tube 9400043126355 101 Active 2024 ASHLEIGH Jones [address], [address], [place], [address] , [facility] 5 15:44:12 Anemia 853583171 Active 2024 ASHLEIGH Jones [address], [address], [place], [address] , [facility] 5 15:46:26 Motion sickness 46156690 Active 2024 Louis Suggs MD [address], [address], [place], [address] , [facility] 5 11:45:59 Labyrinthi tis 22997143 Active 2024 Louis Suggs MD [address], [address], [place], [address] , [facility] [employer] [facility] 5 11:48:24 Nausea and vomiting 49335269 Active 2024 Louis Suggs MD [address], [place], [address] , [facility] [employer] [facility] 5 11:48:43 Atheroscle rosis of coronary artery without angina pectoris 6737059455174 03 Active 2024 Louis Suggs MD [address], [place], [address] , [facility] [employer] [facility] [employer] [facility] 5 11:52:31 Gastroesop hageal reflux disease without esophagiti s 524367732 Active 2024 Louis Suggs MD [address], [place], [address] , [facility] [employer] [facility] [employer] [facility] 5 12:04:07 Chronic kidney disease stage 4 106447183 Active 2024 ASHLEIGH Jones [address] [address], [place], [address] , [facility] [employer] [facility] [employer] [facility] 5 17:13:25 Obstructiv e sleep apnea syndrome 61978434 Active 2024 ASHLEIGH Jones [address] [address], [place], [address] , [facility] [employer] [facility] [employer] [facility] 5 17:14:24 Notes:Some problems listed i n Document: #[id number] could not be added to this patient's chart. Please review this document and add these problems to the patient's chart manually as needed. Problem Notes None recorded. Procedures Surgical History Date Name Laterality Status Provider Name and Address Organization Details Recorded Time 03/09/20 24 Date of Last Colonoscopy completed Felisa Lopez RN [facility] [employer] [facility] 06/18/2024 16:00:13 11/21/19 23 Ear Irrigation completed Oscar Garrett MD [address], [place], [address], [facility] 11/20/2022 21:42:41 Stent completed Not Available [facility] 09/2022 00:53:24 Carpal tunnel completed Not Available [facility] 11/07/2022 00:53:24 Imaging Results None recorded. Procedure Notes None recorded. Medical Equipment None Reported. Allergies Allergen ID Allergen Name Allergen Category Reaction Reaction Severity Criticality Documentation Date Start Date Code Code System Note Provider Name and Address Organization Details Recorded Time 2231 Levaquin medicatio n hives Not available Not available 11/07/2022 82711 2 RxNorm Not Available [facility] 01:24:47 Medications Name Sig Start Date Stop Date Status Note LastModified by Organization Details LastModified Time Prescript ion - Prior Authoriza tion Request 12/24 completed Not Available Not Available Not Available alcohol pads 70 % pads active Not Available Not Available Not Available safety lancets 28g misc active Not Available Not Available Not Available cyclobenz aprine 10 mg tablet TAKE 1 TABLET BY MOUTH EVERY DAY AT BEDTIME 06/02 completed Not Available Not Available Not Available pioglitaz one 15 mg tablet Take 1 tablet every day by oral route. 08/05 completed Not Available Not Available Not Available atorvasta tin 40 mg tablet TAKE 1 TABLET EVERY DAY 06/13 completed Not Available Not Available Not Available desonide 0.05 % topical cream APPLY SPARINGL Y AND RUB GENTLY INTO THE AFFECTED AREA(S) BY TOPICAL ROUTE 2 TIMES PER DAY 08/05 completed Not Available Not Available Not Available hydrocodo ne 7.5 mg-ibupro fen 200 mg tablet active Not Available Not Available No t Available carvedilo l 25 mg tablet TAKE 1 TABLET BY MOUTH TWICE DAILY 2024 active Not Available Not Available Not Avai lable atorvasta tin 20 mg tablet TAKE 1 TABLET BY MOUTH ONCE DAILY 2024 active Not Available Not Available Not Avai lable carvedilo l 12.5 mg tablet 05/19 completed Not Available Not Available Not Available cetirizin e 10 mg tablet TAKE 1 TABLET BY MOUTH ONCE DAILY 06/02 completed Not Available Not Available Not Available azithromy samantha 250 mg tablet TAKE 2 TABLETS (500 MG) BY ORAL ROUTE ONCE DAILY FOR 1 DAY THEN 1 TABLET (250 MG) BY ORAL ROUTE ONCE DAILY FOR 4 DAYS 12/24 completed Not Available Not Available Not Available glyburide 5 mg tablet TAKE TWO TABLETS BY MOUTH TWICE DAILY 03/01 completed Not Available Not Available Not Available ibuprofen 800 mg tablet TAKE ONE TABLET BY MOUTH 4 TIMES DAILY FOR 30 DAYS 05/19 completed Not Available Not Available Not Available metoprolo l tartrate 100 mg tablet Take 1 tablet twice a day by oral route. 11/08 completed Not Available Not Available Not Available fluconazo le 150 mg tablet Take 1 tablet by oral route for 1 day. 12/24 completed Not Available Not Available Not Available hydrocodo ne 5 mg-acetam inophen 325 mg tablet TAKE 1 TABLET BY MOUTH EVERY 4 HOURS NEEDED FOR PAIN 12/24 completed Not Available Not Available Not Available isosorbid e mononitra te ER 30 mg tablet,ex tended release 24 hr 05/19 completed Not Available Not Available Not Available Alcohol Pads TEST 2 TIMES A DAY 06/02 completed Not Available Not Available Not Available Debrox 6.5 % ear drops INSTILL 5 DROPS INTO AFFECTED EAR(S) BY OTIC ROUTE 2 TIMES PER DAY 08/05 completed Not Available Not Available Not Available permethri n 5 % topical cream APPLY (THOROUG HLY MASSAGE INTO SKIN FROM HEAD TO SOLES OF FEET) BY TOPICAL ROUTE ONCE LEAVE ON FOR 8-14 HR, THEN REMOVE BY THOROUGH WASHING active Not Available Not Available No t Available Accu-Chek Softclix Lancets USE TO CHECK GLUCOSE THREE TIMES DAILY active Not Available Not Available No t Available diphenoxy late-atro pine 2.5 mg-0.025 mg tablet Take 1 tablet(s ) 4 times a day by oral route as needed. 05/19 completed Not Available Not Available Not Available Nexium 40 mg capsule,d elayed release active Not Available Not Available Not Available acetamino phen 300 mg-codein e 30 mg tablet Take 1 tablet every 4-6 hours by oral route. active Not Available Not Available No t Available clopidogr el 75 mg tablet TAKE ONE TABLET BY MOUTH DAILY (VIAL) 12/24 completed Not Available Not Available Not Available amlodipin e 5 mg tablet TAKE 1 TABLET BY MOUTH EVERY DAY 2024 active Not Available Not Available Not Avai lable omeprazol e 40 mg capsule,d elayed release 06/18 completed Not Available Not Available Not Available tramadol 50 mg tablet TAKE 1 TO 2 TABLETS BY MOUTH EVERY 6 HOURS NEEDED (MAX 4 TABLETS PER DAY) (VIAL) 2024 active Not Available Not Available Not Avai lable triamcino lone acetonide 0.1 % topical cream Apply 1 applicat ion twice a day by topical route for 30 days. 06/02 completed Not Available Not Available Not Available spironola ctone 25 mg tablet TAKE 1/2 TABLET BY MOUTH DAILY 2024 active Not Available Not Available Not Avai lable Depo-Medr ol 80 mg/mL suspensio n for injection Take 1 mL by injectio n route. 07/26 completed Not Available Not Available Not Available oxycodone -acetamin ophen 5 mg-325 mg tablet 06/13 completed Not Available Not Available Not Available Tessalon Perles 100 mg capsule Take 1 capsule 3 times a day by oral route. active Not Available Not Available No t Available amoxicill in 875 mg tablet Take 1 tablet every 12 hours by oral route. active Not Available Not Available No t Available OneTouch Ultra Test strips TEST 2 TIMES A DAY active Not Available Not Available No t Available Kenalog 10 mg/mL suspensio n for injection In office injectio n administ ered by the provider 07/16 completed [facility]: [id number] 4-20 Not Available Not Available Not Available meclizine 25 mg tablet Take 1 tablet every 8 hours by oral route as needed for 5 days. 06/02 completed Not Available Not Available Not Available baclofen 10 mg tablet Take 1 tablet 4 times a day by oral route. active Not Available Not Available No t Available ferrous sulfate 325 mg (65 mg iron) tablet Take 1 tablet every day by oral route as directed for 30 days. 06/02 completed Not Available Not Available Not Available clotrimaz ole-betam ethasone 1 %-0.05 % topical cream APPLY TO THE AFFECTED AND SURROUND ING AREAS OF SKIN BY TOPICAL ROUTE 2 TIMES PER DAY IN THE MORNING AND EVENING FOR 2 WEEKS 12/24 completed Not Available Not Available Not Available lidocaine 5 % topical patch ONE PATCH EXTERNAL LY EVERY 12 HOURS active Not Available Not Available No t Available valsartan 320 mg tablet 1 po daily active Not Available Not Available No t Available metoprolo l tartrate 50 mg tablet TAKE ONE TABLET BY MOUTH TWICE DAILY 08/20 completed Not Available Not Available Not Available nystatin- triamcino lone 100,000 unit/g-0. 1 % topical cream APPLY TOPICALL Y TO THE AFFECTED AREA TWICE DAILY IN THE MORNING AND IN THE EVENING 12/24 completed Not Available Not Available Not Available nitroglyc darrius 0.4 mg sublingua l tablet USE AT ONSET OF CHEST PAIN AND MAY REPEAT UP TO 3 DOSES EVERY 5 MINUTES (ORIG) active Not Available Not Available No t Available omeprazol e 20 mg capsule,d elayed release TAKE 1 CAPSULE BY MOUTH EVERY DAY BEFORE A MEAL active Not Available Not Available No t Available furosemid e 20 mg tablet 11/08 completed Not Available Not Available Not Available Cheratuss in AC 10 mg-100 mg/5 mL oral liquid take 1-2 tsp every 4-6hrs prn cough active Not Available Not Available No t Available ibuprofen 600 mg tablet TAKE ONE TABLET BY MOUTH 3 TO 4 TIMES DAILY 08/05 completed Not Available Not Available Not Available levofloxa samantha 500 mg tablet Take 1 tablet every 24 hours by oral route for 10 days. active Not Available Not Available No t Available ketoconaz ole 2 % topical cream Apply to feet daily as needed 12/24 completed Not Available Not Available Not Available ondansetr on 4 mg disintegr ating tablet Place 1 tablet every 6-8 hours by translin gual route as needed for 5 days. 06/02 completed Not Available Not Available Not Available fluticaso ne propionat e 50 mcg/actua tion nasal spray,ellie pension 2 sprays in each nostril daily 06/02 completed Not Available Not Available Not Available doxycycli ne hyclate 100 mg tablet Take 1 tablet twice a day by oral route. active Not Available Not Available No t Available glipizide 5 mg tablet TAKE ONE TABLET BY MOUTH TWICE DAILY active Not Available Not Available No t Available amoxicill in 875 mg-potass ium clavulana te 125 mg tablet Take 1 tablet every 12 hours by oral route as directed for 7 days. 09/22 completed Not Available Not Available Not Available Blood Glucose Monitorin g kit Use 2-3 times daily as needed to monitor blood glucose levels 06/02 completed Not Available Not Available Not Available olmesarta n 40 mg-hydroc hlorothia zide 25 mg tablet TAKE 1 TABLET EVERY DAY 06/02 completed Not Available Not Available Not Available aspirin 81 mg 2020 active Not Available Not Available Not Avai lable vitamin B complex 2019 active Not Available Not Available Not Avai lable lidocaine (PF) 10 mg/mL (1 %) injection solution In office injectio n administ ered by the provider 07/16 completed [facility]: [phone] 02-23 Not Available Not Available Not Available valsartan 320 mg-hydroc hlorothia zide 25 mg tablet 1 po daily 08/05 completed Not Available Not Available Not Available Januvia 100 mg tablet TAKE 1 TABLET BY MOUTH DAILY 2024 active Not Available Not Available Not Avai lable amlodipin e 5 mg-olmesa rtan 40 mg tablet 1 po daily 05/24 completed Not Available Not Available Not Available Onglyza 5 mg tablet 06/23 completed she is on januvia Not Available Not Available Not Available OneTouch Delica Lancets 33 gauge 12/13 completed Not Available Not Available Not Available TRUEplus Lancets 30 gauge 06/02 completed Not Available Not Available Not Available Safety Lancets 28 gauge TEST 2 TIMES A DAY 06/02 completed Not Available Not Available Not Available [place]-3 2100 12/24 completed Not Available Not Available Not Available True Metrix Level 1 solution 06/02 completed Not Available Not Available Not Available Emergen-C 1,000 mg oral effervesc ent powder pack Take by oral route. 12/24 completed Not Available Not Available Not Available Ozempic 1 mg/dose (2 mg/1.5 mL) subcutane ous pen injector 12/14 completed Not Available Not Available Not Available Ozempic 0.25 mg or 0.5 mg (2 mg/1.5 mL) subcutane ous pen injector INJECT 0.5MG SUBCUTAN EOUSLY EVERY WEEK DIRECTED active Not Available Not Available No t Available Fle[employer] Ultra Blue Test Strip 12/13 completed Not Available Not Available Not Available [employer] Ultra2 Meter USE DIRECTED active Not Available Not Available No t Available Vitals Date Recorded Body height Body mass index (BMI) Body weight Body temperature Heart rate Respiratory rate Oxygen saturation Oxygen saturation in Arterial blood by Pulse oximetry Systolic And Diastolic Provider Name and Address Organization Details Last Updated DateTime 5 154.94 cm 29.9 kg/m2 76301.2 9 g 97.2 [degF] 75 /min 20 /min 97 % 97 % 116/70 mm[Hg] Felisa Lopez RN [facility] [employer] [facility] 5 15:34:50 Date Recorded Body height Body mass index (BMI) Body weight Body temperature Oxygen saturation Oxygen saturation in Arterial blood by Pulse oximetry Heart rate Systolic And Diastolic Provider Name and Address Organization Details Last Updated DateTime 5 149.86 cm 30.8 kg/m2 91610.1 9 g 96.9 [degF] 96 % 96 % 79 /min 110/64 mm[Hg] Carmelina Self RN [facility] [employer] [facility] 5 11:39:25 Date Recorded Body height Body mass index (BMI) Body weight Body temperature Heart rate Respiratory rate Oxygen saturation Oxygen saturation in Arterial blood by Pulse oximetry Systolic And Diastolic Provider Name and Address Organization Details Last Updated DateTime 4 154.94 cm 28.7 kg/m2 59341.3 9 g 98.1 [degF] 70 /min 20 /min 98 % 98 % 128/72 mm[Hg] Corby Ricci [facility] [employer] 4 15:29:13 Date Recorded Body height Body mass index (BMI) Body weight Body temperature Heart rate Respiratory rate Oxygen saturation Oxygen saturation in Arterial blood by Pulse oximetry Pain severity - 0-10 verbal numeric rating [Score] - Reported Systolic And Diastolic Provider Name and Address Organization Details Last Updated DateTime 5 149.86 cm 30.9 kg/m2 86748.6 8 g 97.2 [degF] 65 /min 20 /min 97 % 97 % 0 124/72 mm[Hg] Felisa Lopez RN [facility] [employer] [facility] 5 16:53:56 Date Recorded Body height Body mass index (BMI) Body weight Body temperature Respiratory rate Heart rate Oxygen saturation Oxygen saturation in Arterial blood by Pulse oximetry Pain severity - 0-10 verbal numeric rating [Score] - Reported Systolic And Diastolic Provider Name and Address Organization Details Last Updated DateTime 4 154.94 cm 30 kg/m2 74299.1 9 g 97.1 [degF] 24 /min 76 /min 99 % 99 % 5 120/76 mm[Hg] Felisa Lopez RN [facility] [employer] 4 15:56:33 Social History Question Answer Notes LastModified by Organizat ion Details LastModified Time Tobacco Smoking Status Never Smoker Felisa Lopez RN [facility] [employer] 12/25/2023 15:56:11 Do You Have An Advance Directive? No Information not available 12/25/2023 Are You Blind Or Do You Have Difficulty Seeing? Yes Wears Glasses Information not available 12/25/2023 Is Blood Transfusion Acceptable In An Emergency? No Information not available 06/18/2024 In The 14 Days Before Symptom Onset, Have You Had Close Contact With A Laboratory-confi rmed COVID-19 While That Case Was Ill? No Information not available 12/25/2023 In The 14 Days Before Symptom Onset, Have You Had Close Contact With A Person Who Is Under Investigation For COVID-19 While That Person Was Ill? No Information not available 06/18/2024 Are You Deaf Or Do You Have Serious Difficulty Hearing? No Information not available 12/25/2023 What Type Of Diet Are You Following? REGULAR Watches Sugar Information not available 12/25/2023 Have There Been Any Changes To Your Family Or Social Situation? No Information not available 12/25/2023 Where Do You Live? [facility] Information not available 12/25/2023 Do You Have A Medical Power Of Electrical Experimental Mechanic? No Information not available 12/25/2023 What Was The Date Of Your Most Recent Tobacco Screening? 11/08/2020 [id number] Information not available 11/07/2022 How Many Children Do You Have? 8 Information not available 12/25/2023 Do You Have Any Pets? No Information not available 12/25/2023 What Is Your Relationship Status? Information not available 12/25/2023 Do You Use Your Seat Belt Or Car Seat Routinely? Yes Information not available 12/25/2023 Do You Have Smoke And Carbon Monoxide Detectors In Your Home? Yes Information not available 12/25/2023 Are You Passively Exposed To Smoke? No Information not available 12/25/2023 Are There Any Smokers In Your House? No Information not available 12/25/2023 Do You Participate In Social Media? No Information not available 12/25/2023 Have You Recently Traveled Abroad? No Information not available 12/25/2023 Do You Have Difficulty Walking Or Climbing Stairs? No Information not available 12/25/2023 Do You Have Any Dietary Restrictions? No Information not available 12/25/2023 Sex: Unknown Functional Status Question Answer Note LastModified by [employer] ion Details LastModified Time What is your level of alcohol consumption? None [id number] Information not available 11/07/2022 Are you currently employed? No Information not available 12/25/2023 Do you have transportation difficulties? No Information not available 12/25/2023 Are you able to walk independently without assistance or assistive devices? [employer] Information not available 12/25/2023 Do you have difficulty doing errands alone? Yes Information not available 12/25/2023 Are you able to care for yourself independently? No Information not available 12/25/2023 Do you have difficulty dressing, bathing, grooming, or toileting? Yes oldest daughter Information not available 12/25/2023 What is your exercise level? None Information not available 12/25/2023 Mental Status Question Answer Note LastModified by Organizat ion Details LastModified Time Do you feel stressed (tense, restless, nervous, or anxious, or unable to sleep at night)? [id number] Information not available 12/25/2023 Do you have difficulty concentrating, remembering or making decisions? No Information no t available 12/25/2023 Family History Relationship Description Onset Age of this Age Resolved Age Notes LastModified by Organization Details LastModified Time Unspecified Relation Heart disease [id number] Not available 11/07/2022 00:53:28 Unspecified Relation Family history of stroke [id number] Not available 11/07/2022 00:53:28 Unspecified Relation Hypertensive disorder [id number].727 [id number] Not available 11/07/2022 00:53:28 Unspecified Relation Diabetes mellitus [id number].193 [id number] Not available 11/07/2022 00:53:28 Medical History Condition Response HEART DISEASE/HEART PROBLEMS Y ARTHRITIS Y DIABETES, TYPE Y HYPERTENSION Y STROKE/TIA Y Gynecological History Statement/Question Response Date of Last Pap Smear Date of Last Colonoscopy 03/09/2024 Most Recent Mammogram Obstetrics History GPAL:G 0 P 0 0 0 0 Immunizations Vaccine Type Date Status Note Provider Nam e and Address Organization Details Recorded Time Influenza, high-dose, quadrivalent, PF 2 completed Not Available [facility] 10/25/2023 02:30:53 Influenza, high-dose, quadrivalent, PF 1 completed Not Available [facility] 10/25/2023 02:30:53 Influenza, high-dose, trivalent, PF 9 completed Not Available [facility] 10/25/2023 02:30:53 pneumococcal polysaccharide PPV23 9 completed Not Available [facility] 10/25/2023 02:30:53 Influenza, high-dose, trivalent, PF 8 completed Not Available [facility] 10/25/2023 02:30:53 Influenza, high-dose, trivalent, PF 7 completed Not Available [facility] 10/25/2023 02:30:53 Pneumococcal conjugate PCV 13 7 completed Not Available [facility] 10/25/2023 02:30:53 Influenza, high-dose, trivalent, PF 6 completed Not Available [facility] 10/25/2023 02:30:53 Past Encounters Encounter ID Performer Location Encounter Start Date Encounter Closed Date Diagnosis/Indication Diagnosis SNOMED-CT Code Diagnosis ICD10 Code Diagnosis IMO Codes Diagnosis Note [id number] Vega Freeman MD [facility] [place] [address] [place] [address] 11/08/2020 00:00:00 11/08/2020 16:48:42 [id number] [facility] [place] [address] [place] [address] 03/01/2021 00:00:00 03/03/2021 17:12:07 [id number] Oscar Garrett MD [facility] [place] [address] [place] [address] 06/13/2021 00:00:00 06/14/2021 05:53:00 [id number] S_Histor ic[facility] [place] [address] [place] [address] 07/03/2021 00:00:00 07/03/2021 14:53:56 [id number] Oscar Garrett MD [facility] [place] [address] [place], [place] [address] 07/10/2021 00:00:00 07/10/2021 21:42:46 [id number] S_Histor ic_[facility]way [facility] [place] [address] [place] [address] 01/22/2022 00:00:00 01/22/2022 16:08:52 [id number] Oscar Garrett MD [facility] [place] [address] [place], [place] [address] 04/16/2022 00:00:00 04/16/2022 20:40:06 [id number] Oscar Garrett MD [facility] [place] [address] [place] [address] 05/31/2022 00:00:00 05/31/2022 12:00:57 [id number] Oscar Garrett MD [facility] [place] [address] [place] [address] 07/02/2022 00:00:00 07/02/2022 15:19:52 [id number] Oscar Garrett MD [facility] [place] [address] [place] [address] 10/11/2022 00:00:00 10/11/2022 20:58:23 [id number] Oscar Garrett MD [facility] [place] [address] [place] [address] 11/20/2022 15:46:21 11/20/2022 16:43:05 Impacted cerumen in right ear 3496854126 455447 H61.21 Irrigated right ear Hearing loss 82335360 H9 1.93 Obtain hearing aids [id number] Oscar Garrett MD [facility] [place] [address] [place] [address] 05/08/2023 14:55:38 05/08/2023 17:20:48 Vaginitis 07726856 N76.0 [id number] Oscar Garrett MD [facility] [place] [address] [place] [address] 10/22/2023 15:41:38 10/22/2023 16:17:01 Gastroesophageal reflux disease 828886899 K21.9 Injury of left shoulder 2622858821 2767525 S49.92XA Arthritis 1319208 M19.90 Chronic low back pain 27 7210043 M54.50 Chronic neck pain 277753 0228 107 M54.2 Chronic ob structive pulmonary disease 20053182 J44.9 Osteoarthr itis of joint of hand 21497099 M19.049 Essential hypertension 56790781 I10 History of cerebrovascular accident 632861589 Z86.73 Hyperlipidemia 47294833 E78.5 Hypothyroidism 97730973 E03.9 Neuropathy 853473867 G62 .9 Type 2 audra betes mellitus without complication 000610475 E11.9 [id number] Louis Suggs MD [address] [address] 12/25/2023 15:36:21 12/25/2023 16:46:27 Edema of lower extremity 867556195 R60.0 Screening mammography 24 892188 Z12.31 Diabetes mellitus 044593 09 E11.9 Hyperlipidemia 11651444 E78.5 [id number] Louis Suggs MD [address] [address] 01/21/2024 15:20:53 01/21/2024 16:30:59 Dark stools 03844553 R19.5 Chronic low back pain 27 7085072 M54.50 [id number] Louis Suggs MD [address] [address] 06/18/2024 15:48:27 06/18/2024 16:22:37 Bilateral acquired trigger finger of middle fingers 6055595157 2196033 M65.331 M65.332 Advised to continue prescribed TramadolAd vised to utilize voltaren gel topically Diabetes mellitus 199819 09 E11.9 Chronic low back pain 27 3819258 M54.50 CSA up to date, UDS needed pt has not taken for a few days, 3 month visit needed before next fill Hyperlipidemia 27847767 E78.5 Essential hypertension 67856188 I10 [id number] Louis Suggs MD [address] [address] 09/22/2024 15:13:23 09/23/2024 10:37:52 Dysfunction of right eustachian tube 8110656083 569894 H69.91 Anemia 094223348 D64.9 [id number] Louis Suggs MD [facility] [address] 12/23/2024 11:30:27 12/23/2024 12:30:41 Motion sickness 58638125 T75.3XXA Labyrinthitis 77245217 H 83.09 Nausea and vomiting 1693 2000 R11.2 Hypertensive disorder 38 612480 I10 Atheroscle rosis of coronary artery without angina pectoris 1125543049 46326 I25.10 Hyperlipidemia 01135800 E78.5 Reduced mobility 6053676 Z74.09 Anemia 654556692 D64.9 Gastroesop hageal reflux disease without esophagitis 661673073 K21.9 [id number] Louis Suggs MD [address] [address] 06/02/2025 16:26:08 06/02/2025 17:26:55 Chronic low back pain 163329680 M54.50 CSA up to date, UDS needed pt has not taken for a few days, 3 month visit needed before next fill Chronic ki dney disease stage 4 107393073 N18.4 535197 Last GFR 26, no longer sees nephrology Have moderate lower leg cramp Obstructiv e sleep apnea syndrome 56341564 G47.33 8229020 Cannot tolerate CPAP, wants BiPAP Hypertensive disorder 38 412322 I10 Well controlled with current meds Type 2 audra betes mellitus without complication 028585510 E11.9 Will check labs History of cerebrovascular accident 668858512 Z86.73 Will check cholestero l Health Concerns Section Related Observation LastModified by Organization Detai ls LastModified Time None Recorded Concern Status LastModified by Organization Details LastModified Time None Recorded Advance Directives Directive N: Payers Insurance Date Sequence Insurance Name Policy Number Policy Vang Covered Member ID Vang Member ID Guarantor Name 09/22/2024 2 [place] [employer] Saloni Mccallum [id number] Saloni Mccallum 05/30/2025 1 [facility] (MEDICARE REPLACEMENT/A DVANTAGE - PPO) [id number] Saloni Mccallum [id number] Saloni Mccallum Notes Date Note Type Note Provider Name and Address Organization Details Recorded Time 01/21/2024 text/html Saloni Mccallum is an 83 year old female patient here for stomach complaints. She states that for almost one year she has had intermittent N/V/D, along with abd cramping. Saturday she states that she had an episode of diarrhea with black vomit. She admits that she had had a few sips of coffee that morning. She states that she has also been having black stools. She does take aspirin 81 mg PO daily. Ursula Tubbs, CAREER RESOURCE SPECIALIST [address], [place], [address], [facility] [employer] 01/21/2024 16:28:47 06/18/2024 text/html Saloni Mccallum is an 83 year old female patient here for a 6 month FU She has concerns today with MARY trigger finger, the right hand is worse than the left. She has had MARY carpal tunnel release Her past medical history is significant for type II diabetes. Her last A1C (04/16/22) was 6.7. She is currently taking Januvia 100 mg PO daily. She has a histroy of hypertension. Her BP on arrival was 120/78. She is taking aspirin, amlodipine 5 mg, carvedilol 25 mg PO BID, olmesartan 40 mg- HCTZ 25 mg PO daily, spironolactone 12.5 mg PO daily. She declines headahces, ringing in her ears, or light headedness She sees cardiology (Dr. Munguia) every 6 months. She has nitro on hand but has not required it in a long time. She has an aneurysm She has CKD stage 3. She sees a kidney doctor at [place]. She has a history of GERD. This is well controlled with omeprazole. She is aware of her trigger foods. Recent EGD found 2 ulcers She has pain in the right shoulder. She has seen ortho, they recommended more injections, she is not interested right now. She takes cyclobenzaprine 10 mg PO PRN, Tramadol She has a history of hyperlipidemia. She is taking atorvastatin 20 mg PO HS Flu Shot: recommended at pharmacyCOVID vaccines: declinesTdap: unsure, recommendedPneumococc al: due for [id number]: declinesMammograms: declinesColonoscopy: 03/24/2024WWE: hysterectomyEye exam: has appointment ental exam: goes annually, has denture Ursula Liumelchor, CAREER RESOURCE SPECIALIST [address], [place], [address], [employer] [facility] [employer] 06/18/2024 16:21:10 09/22/2024 text/html Saloni Mccallum is an 83 year old female patient here for a 3 month FU She has concerns today with MARY trigger finger, the right hand is worse than the left. She has had MARY carpal tunnel release. She has an appointment scheduled for Saturday She has pain in the right shoulder. She has seen ortho, they recommended more injections, she is not interested right now. She takes cyclobenzaprine 10 mg PO PRN, Tramadol Concerns today with right ear pain and fullness States she has been fatigued and groggy lately. Flu Shot: recommended at pharmacyCOVID vaccines: declinesTdap: unsure, recommendedPneumococc al: due for ZGL38Huxmeekl: declinesMammograms: declinesColonoscopy: 03/24/2024WWE: hysterectomyEye exam: has appointment ental exam: goes annually, has denture [place] AlexaLISBETH rocheP [address], [place], [address], [employer] [facility] [employer] 09/22/2024 15:55:31 12/23/2024 text/html ACV:Here with her daughter. On last Sun (3 days ago), she was driving with her and they were running late, so her drove faster than usual and she felt dizzy, lightheaded and than had few episodes of vomiting. Pt did not eat anything in the morning on that day. She felt bad for few hrs on that day. Denies any unusual outside food intake/known sick contact last week. Since yesterday, she is feeling overall better and much better today. No chest pain/sob with these episodes . In office today, she denies any symptoms. Good po intake ++. Pt will be seeing her Cardio at [place] on 01/11/25 for her regular f/u. Louis Suggs MD [address], [place], [address], [facility] [employer] [facility] 12/23/2024 12:36:15 06/02/2025 text/html She has concerns today for lower extremity cramping She is taking tramadol for chronic low back pain. This is doing well at controlling pain She is having AM headaches, she does not use her CPAP. States she cannot tolerate this Ursula Tubbs, CAREER RESOURCE SPECIALIST [address] [facility] [address], [place], [address], [facility] [employer] [facility] 06/02/2025 17:22:22 OBGyn Episode No OBEpisode recorded.
--- OUTSIDE RECORDS SUMMARY | 2025-07-06 11:12 | XMS_ITS | Clinical Summary ---
Author Organization [facility] [place] Address [address] [place] [address] Phone Care Team Providers Care Quality Reviewer Name Role Phone Oscar Garrett MD Primary Care Provider [phone] Allergies Active Allergy Reactions Criticality Noted Date [...] mg by mouth daily before breakfast. 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 Gender Identity Not on file Sexual Orientation [...] A M CDT Height 149.9 cm (4' 11) 05/11/2021 3:15 PM CDT Body Mass Index [...] 1-dose 75+ series) 2017 INFLUENZA VACCINE (#1) 2025 9, 07/16/2018, 07/26/2017, Additional history exists PNEUMOCOCCAL VACCINE 50+ YEARS Completed 07/15/2019 , 07/26/2017 Medical Devices Implanted Type Area Automotive Refinisher Device Identifier Shelf Expiration Date Model / Serial / Lot Hemostatic Surgiflo 8ml W/Thrombin 2994 - [id number] Implanted:Qty: 1 on 05/03/2021 by Pedro Valdivia MD at [facility] Hemostatic N/A: Spine Cervical Anterior [employer] 10/09/2022 2994 / / [id number] Hemostatic Surgiflo 8ml W/Thrombin 2994 - [id number] Implanted:Qty: 1 on 05/03/2021 by Pedro Valdivia MD at [facility] Hemostatic N/A: Spine Cervical Anterior [employer] 10/09/2022 2994 / / [id number] I Factor 2.5 Cc Implanted:Qty: 1 on 05/03/2021 by Pedro Valdivia MD at [facility] Other N/A: Spine Cervical Anterior [employer] 12/08/2023 700-025 / / [id number] Description:ITEM ADD-RDJ Variable Angle Screw 03.5mm L 14mm Self-Drilling Pk/2 Implanted:Qty: 1 on 05/03/2021 by Pedro Valdivia MD at [facility] Other N/A: Spine Cervical Anterior [employer] [id number] 4-SD-SP / / Description:ITEM ADD-RDJ Csts Stand Alone Ifd17w X 14d X 7h Deg Implanted:Qty: 2 on 05/03/2021 by Pedro Valdivia MD at [facility] Other N/A: Spine Cervical Anterior [employer] CSTS-SA- [id number] / / Description:ITEM ADD-RDJ 2-Level 32mm Cervical Plate Implanted:Qty: 1 on 05/03/2021 by Pedro Valdivia MD at [facility] Plate N/A: Spine Cervical Anterior ZAVATION 300-0232 / STERILIZ ED [id number] / LOAD#[id number] Description:ITEM ADD-RDJ CARMEN REQ#[id number] Screw Variable Sd 4.0mm X 14mm Implanted:Qty: 6 on 05/03/2021 by Pedro Valdivia MD at [facility] Screw N/A: Spine Cervical Anterior ZAVATION 301-4014 / STERILIZ ED [id number] / LOAD#[id number] Description:ITEM ADD-RDJ Insurance [facility] RX [employer] Medicare Part D Advance Directives For more information, please contact: [phone] * Full Code (Latest Code Status on File) Date Activated Date Inactivated Comments 05/11/2021 9:01 PM 05/14/2021 6:31 PM * Full Code Date Activated Date Inactivated Comments 05/03/2021 1:53 PM 05/05/2021 8:18 PM Care Teams Quality Reviewer Relationship Specialty Start Date End Date Oscar Garrett MD PCP - General Family Practice 11/06/11
--- OUTSIDE RECORDS SUMMARY | 2025-07-06 11:12 | XMS_ITS | Clinical Summary ---
Author Organization [facility] Address [address] [place] [id number] Care Team Providers Care Brickmason Contractor Name Role Phone Pedro Quintana MD Unavailable + Jessie Cabrera RN Unavailable Unavailable Ursula Tubbs NP Primary Care Provider Veronica Ferguson Unavailable Unavailable Allergies Active Allergy Reactions Criticality [...] disease 07/26/2022 Coronary artery disease invo lving [place] coronary artery of [place] heart without angina pectoris 05/26/2019 Aneurysm of ascending aorta 11/27/2018 Hypertension 10/07/2018 Ascending aorta enlargement 10/07/2018 Sleep apnea 10/07/2018 Hyperlipidemia 10/09/2012 Transient cerebral ischemic attack 10/09/2012 Type 2 diabetes mellitus without complications 0 10/09/2012 Resolved Problems Problem Noted Date Diagnosed Date Resolved Date Stage 2 chronic kidney disease 01/18/2022 07/26/2022 Encounters Date Type Department Care Team Description 06/30/2025 Telephone [facility] Medicine Nephrology [address] [facility] Advanced Medicine 5th [place] [address] [place] [address] Yasmani Tolentino MD Appointment Reminder Call from Last 3 Months Surgical History Surgery Date Site/Laterality Comments THYROIDECTOMY, PARTIAL HYSTERECTOMY W/ BILATERAL SALPINGOOPHORECTOMY SECTION Medical History Medical History Date Comments Hypertension Hyperlipidemia Diabetes mellitus Stroke (HCC) Sleep apnea Aortic aneurysm Chronic [...] on file 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 Gender Identity Not on file Sexual Orientation Not on file Obstetrics History Last Filed Vital Signs Vital Sign Reading Time Taken Comments Blood Pressure 107/72 01/25/2025 3:23 PM CDT Pulse 70 11/25/2024 11:19 AM CDT Temperature 36.6 C (97.9 F) 01/24/2023 9:40 AM CDT Respiratory Rate 16 01/15/2019 9:53 AM CDT Oxygen Saturation 98% 11/25/2024 11:19 AM CDT Inhaled Oxygen Concentration - - Weight 68.6 kg (151 lb 3.2 oz) 01/25/2025 3:23 P M CDT Height 149.9 cm (4' 11) 01/25/2025 3:23 PM CDT Body Mass Index 30.54 01/25/2025 3:23 PM CDT Plan of Treatment Health Maintenance [...] 65+ 2007 Lipid Panel 06/10/2021 06/10/2020, 08/01/2014 Influenza Vaccine (#1) 2025 9, 07/16/2018, 07/26/2017, Additional history exists eGFR 01/25/2026 01/25/2025, 01/07, 12/20/2020, Additional history exists Pneumococcal vaccine 65+ Completed 07/15/2019, 07/10 Medical Devices Implanted Type Area Trust Vault Custodian Device Identifier Shelf Expiration Date Model / Serial / Lot [employer] [id number] System Coronary Stent Xience Josiane Everolimus L18 Mm Od3.5 Mm Rapid Exchange - [id number] Implanted:Qty: 1 on 01/01/2019 by Royer Peterson MD at [facility] [employer] 05/29/2019 [id number] / / Procedures Procedure Name Priority Date/Time Associated Diagnosis Comments EGFR Routine 01/25/2025 1:46 PM CDT Stage 3b chronic kidney disease (HCC) Type 2 diabetes mellitus without complication, unspecified whether terminal press operator insulin use (HCC) Primary hypertension LIPID PANEL Routine 06/10/2020 8:26 AM CDT Coronary artery disease involving [place] coronary artery of [place] heart without angina pectoris Essential hypertension Aneurysm of ascending aorta Hyperlipidemia, unspecified hyperlipidemia type from Last 3 Months or Most Recently Relevant to Health Maintenance Results * (ABNORMAL) eGFR (01/25/2025 1:46 PM CDT) eGFR 23(L) >=60 mL/min/1. 73 m2 Comment: Interpretive Data Reference Interval Normal >/= [...] interpretive data was last reviewed 2021. Blood 01/25/2025 1:46 PM CDT 01/25/2025 3:32 PM CDT us Yasmani Tolentino MD LAB BLOOD ORDERABLES Fin al Result [facility] [address] [facility]. [place] [address] * (ABNORMAL) Lipid panel (06/10/2020 8:26 AM [...] LDL-C. [place] SS et al. RUIZ. 2013;310(19): 3928-5179 (http://education.Communication Science/faq/OYI816) Chol/HDL ratio 3.4 <5.0 (calc) [facility] [...] MD LAB BLOOD ORDERABLES Final Result [facility] [address] [place] [phone] from Last 3 Months or Most Recently Relevant to Health Maintenance Insurance [facility] MEDICARE ADVANTAGE UHC MEDICARE ADVANTAGE UHC MEDICARE ADVANTAGE Advance Directives For more information, please contact: [phone] * Full Code (Latest Code Status on File) Date Activated Date Inactivated Comments 01/01/2019 5:48 PM 01/01/2019 11:13 PM Care Teams Brickmason Contractor Relationship Specialty Start Date End Date Ursula Tubbs NP [address] [facility] [place] [address] PCP - General Nurse Practitioner 01/25/25 Pedro Quintana MD Consulting Physician Orthopedic Surgery 01/27/21 Jessie Cabrera, grocery clerk Failure Coordinator 04/10/23 Veronica Ferguson Primary Beef Grader 05/27/25
--- OUTSIDE RECORDS SUMMARY | 2025-07-06 11:12 | XMS_ITS | Clinical Summary ---
Author Organization [facility] Address [address] [place] [address] Care Team Providers Care Filer Metal Patterns Name Role Phone None, Provider MD Primary [...] Comments Blood Pressure 109/61 08/11/2024 6:31 PM SENIOR MANAGING DIRECTOR Pulse 78 08/11/2024 6:31 PM SENIOR MANAGING DIRECTOR Temperature 36.9 C (98.4 F) 08/11/2024 6:31 PM SENIOR MANAGING DIRECTOR Respiratory Rate 18 08/11/2024 6:31 PM SENIOR MANAGING DIRECTOR Oxygen Saturation 99% 08/11/2024 6:31 PM SENIOR MANAGING DIRECTOR Inhaled Oxygen Concentration - - Weight 70.8 kg (156 lb) 08/11/2024 6:31 PM SENIOR MANAGING DIRECTOR Height 149.9 cm (4' 11) 08/11/2024 6:31 PM SENIOR MANAGING DIRECTOR Body Mass Index 31.51 08/11/2024 6:31 PM SENIOR MANAGING DIRECTOR Plan of Treatment Health Maintenance Due Date Last Done Comments DTaP, Tdap and Td Vaccines (1 - Tdap) 1961 Zoster Vaccines (1 of 2) 1992 Annual Medicare Wellness Visit 2007 Dexa Scan (General) 2007 RSV Immunization or 60+ Years (1 - 1-dose 75+ series) 2017 COVID-19 Vaccine ( - season) 2025 Influenza Adult (#1) 2025 07/15/2019, 07/16/2018, 07/26/2017, Additional history exists Pneumococcal Vaccine: 50+ Years Completed 07/15/2019, 07/26/2017 Hepatitis A Vaccines Aged Out No long er eligible based on patient's age to complete this topic Meningococcal B Vaccine Aged Out No l onger eligible based on patient's age to complete this topic Meningococcal Vaccine Aged Out No lizette job eligible based on patient's age to complete this topic RSV Immunizations Under 20 Months Aged Out No longer eligible based on patient's age to complete this topic Insurance [facility] MEDICARE Care Teams Filer Metal Patterns Relationship Specialty Start Date End Date None, Provider, MD PCP - General UNKNOWN PHYSICIAN SPECIALTY 02/15/24
[2025-07-06 11:20] LABS: Hematocrit 35.9 % (37.0-47.0); Hemoglobin 11.5 g/dL (12.0-15.0); Immature Granulocyte Percent A 0.4 % (0-0.5); Lymphocytes Absolute Auto 1.18 K/mm3 (0.9-3.2); Mean Corpuscular HGB Conc 32.0 g/dl (32-36); Mean Corpuscular Hemoglobin 28.5 pg (26-34); Mean Corpuscular Volume 89.1 fl (80-100); Nucleated Red Blood Cells Absolute Auto 0.000 K/mm3 (0.0-0.012); Nucleated Red Blood Cells Perc 0.0 % (0.0-0.2); Platelet Count Result 193 k/mm3 (150-375); Red Blood Count 4.03 M/mm3 (4.2-5.4); White Blood Count 4.5 K/mm3 (4.5-10.0)
[2025-07-06 11:41] LABS: Albumin Level 4.0 g/dL (3.5-5.1); Anion Gap 8 mmol/L (4-12); Blood Urea Nitrogen 28 mg/dL (7-17); Calcium 8.8 mg/dL (8.4-10.2); Carbon Dioxide 24 mmol/L (22-30); Chloride 109 mmol/L (98-107); Estimated Glomerular Filt Rate 28; Glucose 86 mg/dL (65-110); Potassium 5.1 mmol/L (3.4-5.0); Sodium 141 mmol/L (137-145)
== END 2025-07-06 09:50 | disposition home or self-care (01) ==
DX: I12.9 Hypertensive chronic kidney disease with stage 1 through stage 4 chronic kidney disease, or unspecified chronic kidney disease (principal); N18.32 Chronic kidney disease, stage 3b
CPT/HCPCS: 36415; 80069; 81003; 85025